=== PATIENT | female | born 1950 | race Caucasian/White ===

== ENCOUNTER → 2018-05-23 | Outpatient (CLI) | payer OTHER ==
[~2018-05-23] MED LIST: METF500 PO; MICROZIDE12.5 M1 PO; NAPR500 PO; Omeprazole20 M1; PRAV20 PO; Prinivil10 MG PO; Synthroid25 MCG PO
[2018-05-23 10:05] LABS: BASOPHILS ABSOLUTE AUTO 0.03 K/mm3 (0.00-0.23); BASOPHILS PERCENT AUTO 0 % (0-2); EOSINOPHILS ABSOLUTE AUTO 0.07 K/mm3 (0.00-0.68); EOSINOPHILS PERCENT AUTO 1 % (0-6); Hematocrit 40.4 % (33.0-51.0); Hemoglobin 14.3 g/dL (11.5-16.0); IMMATURE GRAN ABSOLUTE AUTO 0.02 K/mm3 (0.00-0.10); IMMATURE GRAN PERCENT AUTO 0 % (0-1); LYMPHOCYTES ABSOLUTE AUTO 2.34 K/mm3 (0.84-5.20); LYMPHOCYTES PERCENT AUTO 25 % (21-46); MONOCYTES ABSOLUTE AUTO 0.71 K/mm3 (0.16-1.47); MONOCYTES PERCENT AUTO 8 % (4-13); Mean Corpuscular HGB 29.1 pg (26.0-34.0); Mean Corpuscular HGB Conc 35.4 g/dL (31.5-36.5); Mean Corpuscular Volume 82 fL (80-100); Mean Platelet Volume 11.1 fL (9.1-12.4); NEUTROPHILS PERCENT AUTO 66 % (41-73); Platelet Count 257 K/mm3 (150-400); RDW Coefficient Variation 13.7 % (11.7-14.2); RDW Standard Deviation 39.8 fL (35.1-46.3); Red Blood Cell Count 4.92 M/mm3 (3.80-5.20); White Blood Cell Count 9.37 K/mm3 (4.00-11.30)
[2018-05-23 10:24] LABS: Alanine Aminotransfer (ALT/SGP 33 U/L (12-78); Albumin, Blood 4.2 g/dL (3.4-5.0); Albumin/Globulin Ratio 1.3 (0.8-1.8); Alk Phos 73 U/L (40-126); Anion Gap 12 mmol/L (6-16); Aspartate Aminotrans (AST/SGOT 18 U/L (12-37); Bilirubin, Total 0.4 mg/dL (0.1-1.0); Blood Urea Nitrogen 18 mg/dL (8-24); Bun/Creatinine Ratio 27.3 (12.0-20.0); CO2, Blood 26 mmol/L (21-32); Calcium, Blood 10.5 mg/dL (8.5-10.1); Chloride, Blood 102 mmol/L (98-108); Creatinine, Blood 0.66 mg/dL (0.40-1.00); Globulin, Blood 3.2 g/dL (2.2-4.0); Glomerular Filtration Rate >60 (60-); Glucose, Blood 107 mg/dL (70-99); Potassium, Blood 3.8 mmol/L (3.5-5.5); Sodium, Blood 140 mmol/L (136-145); Total Protein, Blood 7.4 g/dL (6.4-8.2)
[2018-05-23 10:51] LABS: International Normalized Ratio 0.97
== END | disposition home or self-care (01) ==
LOC: LAB EV 10:00 → LAB SHORT 10:00
PROVIDERS: General Practice
DX: K62.5 Hemorrhage of anus and rectum (principal)
CPT/HCPCS: 80053; 85025; 85610

== ENCOUNTER 2018-12-06 14:18 | Emergency (ER) | payer OTHER ==
[~2018-12-06] VITALS: Ht 167.6 cm; Wt 136.1 kg
[2018-12-06 15:09] LABS: BASOPHILS ABSOLUTE AUTO 0.02 K/mm3 (0.00-0.23); BASOPHILS PERCENT AUTO 0 % (0-2); EOSINOPHILS ABSOLUTE AUTO 0.05 K/mm3 (0.00-0.68); EOSINOPHILS PERCENT AUTO 0 % (0-6); Hematocrit 36.2 % (33.0-51.0); Hemoglobin 12.8 g/dL (11.5-16.0); IMMATURE GRAN ABSOLUTE AUTO 0.15 K/mm3 (0.00-0.10); IMMATURE GRAN PERCENT AUTO 1 % (0-1); LYMPHOCYTES ABSOLUTE AUTO 2.08 K/mm3 (0.84-5.20); LYMPHOCYTES PERCENT AUTO 16 % (21-46); MONOCYTES ABSOLUTE AUTO 1.29 K/mm3 (0.16-1.47); MONOCYTES PERCENT AUTO 10 % (4-13); Mean Corpuscular HGB 30.1 pg (26.0-34.0); Mean Corpuscular HGB Conc 35.4 g/dL (31.5-36.5); Mean Corpuscular Volume 85 fL (80-100); Mean Platelet Volume 10.9 fL (9.1-12.4); NEUTROPHILS PERCENT AUTO 73 % (41-73); Platelet Count 235 K/mm3 (150-400); RDW Coefficient Variation 13.2 % (11.7-14.2); RDW Standard Deviation 40.5 fL (35.1-46.3); Red Blood Cell Count 4.25 M/mm3 (3.80-5.20); White Blood Cell Count 13.39 K/mm3 (4.00-11.30)
[2018-12-06] MEDS ORDERED: OMEPRAZOLE MAGN20 MG PO (15:09)
[2018-12-06] MEDS ORDERED: CHLO25B PO (15:09)
[2018-12-06] MEDS ORDERED: NAPR500 PO (15:09)
[2018-12-06] MEDS ORDERED: PRINIVIL10 MG PO (15:09)
[2018-12-06] MEDS ORDERED: LEVSOD25 PO (15:10)
[2018-12-06] MEDS ORDERED: METF500 PO (15:10)
[2018-12-06] MEDS ORDERED: BENADRYL25 MG PO (15:10)
[2018-12-06] MEDS ORDERED: Ropinirole HC0.25 MG PO (15:10)
[2018-12-06] MEDS ORDERED: PRAV20 PO (15:10)
[2018-12-06] MEDS ORDERED: POTA10T PO (15:11)
[2018-12-06] MEDS ORDERED: BACL10 PO (15:11)
[2018-12-06] MEDS ORDERED: FURO20 PO (15:11)
[2018-12-06] MEDS ORDERED: ALEN70 PO (15:11)
[2018-12-06] MEDS ORDERED: DICLOFENAC NA (15:12)
[2018-12-06 15:35] LABS: Alanine Aminotransfer (ALT/SGP 32 U/L (12-78); Albumin, Blood 3.1 g/dL (3.4-5.0); Albumin/Globulin Ratio 0.8 (0.8-1.8); Alk Phos 66 U/L (50-136); Anion Gap 8 mmol/L (6-16); Aspartate Aminotrans (AST/SGOT 18 U/L (12-37); Bilirubin, Total 0.5 mg/dL (0.1-1.0); Blood Urea Nitrogen 27 mg/dL (8-24); CO2, Blood 24 mmol/L (21-32); Calcium, Blood 10.2 mg/dL (8.5-10.1); Chloride, Blood 103 mmol/L (98-108); Creatinine, Blood 0.69 mg/dL (0.40-1.00); Globulin, Blood 4.1 g/dL (2.2-4.0); Glomerular Filtration Rate >60 (60-); Glucose, Blood 105 mg/dL (70-99); Potassium, Blood 4.1 mmol/L (3.5-5.5); Sodium, Blood 135 mmol/L (136-145); Total Protein, Blood 7.2 g/dL (6.4-8.2); Troponin I <0.015 ng/mL (0.000-0.040)
[2018-12-06 16:28] LABS: Source, Urine Voided
[2018-12-06 16:33] LABS: Blood, Urine 3+ (Neg); Glucose Qualitative, Urine Neg (Neg); Ketones, Urine 2+ (Neg); Leukocyte Esterase, Urine 3+ (Neg); Nitrite, Urine Neg (Neg); Protein, Urine 2+ (Neg); Specific Gravity, Urine 1.025 (1.003-1.022); Urobilinogen, Urine 1+ (Normal)
[2018-12-06 16:41] LABS: Bilirubin, Urine 1+ (Neg)
[2018-12-06 16:42] LABS: Appearance, Urine Hazy (Clear); Color, Urine Yellow (P-Yellow)
[2018-12-06 16:43] LABS: Red Blood Cells, Urine 25-50 /hpf (0-2); Squamous Epithelial Cells Many /hpf (Few)
[2018-12-06 16:44] LABS: Bacteria Mod /hpf; Hyaline Casts 0-2 /lpf (0-2); Mucus Heavy (0-Heavy)
[2018-12-06] MEDS ORDERED: HYDR1TAB94 PO (17:13)
[2018-12-06] MEDS ORDERED: CEFP200 PO (17:13)
== END 2018-12-06 19:05 | disposition home or self-care (01) ==
LOC: ER 14:18
PROVIDERS: Emergency Medicine
DX: M25.552 Pain in left hip (principal); Z79.899 Other long term (current) drug therapy; Z79.84 Long term (current) use of oral hypoglycemic drugs; E11.9 Type 2 diabetes mellitus without complications
CPT/HCPCS: 71045; 73502; 80053; 81001; 83880; 84484; 85025; 93005; 93010; 96374; 96375; 99284-25; A9270-GY; J1170; J2405

== ENCOUNTER 2018-12-08 01:42 | Emergency (ER) | payer OTHER ==
[~2018-12-08] VITALS: Ht 170.2 cm; Wt 137.4 kg
[~2018-12-08 01:42] MED LIST changes: +ALEN70 PO; +BACL10 PO; +BENADRYL25 MG PO; +CEFP200 PO; +CHLO25B PO; +DICLOFENAC NA; +FURO20 PO; +HYDR1TAB94 PO; +LEVSOD25 PO; +OMEPRAZOLE MAGN20 MG PO; +POTA10T PO; +PRINIVIL10 MG PO; +Ropinirole HC0.25 MG PO
[2018-12-08 03:18] LABS: BASOPHILS ABSOLUTE AUTO 0.03 K/mm3 (0.00-0.23); BASOPHILS PERCENT AUTO 0 % (0-2); EOSINOPHILS ABSOLUTE AUTO 0.04 K/mm3 (0.00-0.68); EOSINOPHILS PERCENT AUTO 0 % (0-6); Hemoglobin 12.9 g/dL (11.5-16.0); IMMATURE GRAN ABSOLUTE AUTO 0.16 K/mm3 (0.00-0.10); IMMATURE GRAN PERCENT AUTO 1 % (0-1); LYMPHOCYTES ABSOLUTE AUTO 2.21 K/mm3 (0.84-5.20); LYMPHOCYTES PERCENT AUTO 16 % (21-46); MONOCYTES ABSOLUTE AUTO 1.27 K/mm3 (0.16-1.47); MONOCYTES PERCENT AUTO 9 % (4-13); Mean Corpuscular HGB 29.7 pg (26.0-34.0); Mean Corpuscular HGB Conc 34.9 g/dL (31.5-36.5); Mean Corpuscular Volume 85 fL (80-100); Mean Platelet Volume 10.4 fL (9.1-12.4); NEUTROPHILS ABSOLUTE AUTO 10.46 K/mm3 (1.96-9.15); NEUTROPHILS PERCENT AUTO 74 % (41-73); Platelet Count 283 K/mm3 (150-400); RDW Coefficient Variation 13.1 % (11.7-14.2); RDW Standard Deviation 40.3 fL (35.1-46.3); Red Blood Cell Count 4.34 M/mm3 (3.80-5.20); White Blood Cell Count 14.17 K/mm3 (4.00-11.30)
[2018-12-08 03:23] LABS: Source, Urine Clean Catch
[2018-12-08 03:25] LABS: Bilirubin, Urine Neg (Neg); Blood, Urine 5+ (Neg); Glucose Qualitative, Urine Neg (Neg); Ketones, Urine 3+ (Neg); Leukocyte Esterase, Urine 2+ (Neg); Nitrite, Urine Neg (Neg); Protein, Urine 1+ (Neg); Specific Gravity, Urine 1.025 (1.003-1.022); Urobilinogen, Urine NORM (Normal)
[2018-12-08 03:37] LABS: Alanine Aminotransfer (ALT/SGP 30 U/L (12-78); Albumin/Globulin Ratio 0.7 (0.8-1.8); Alk Phos 65 U/L (50-136); Anion Gap 6 mmol/L (6-16); Aspartate Aminotrans (AST/SGOT 17 U/L (12-37); Bilirubin, Total 0.4 mg/dL (0.1-1.0); Blood Urea Nitrogen 30 mg/dL (8-24); Bun/Creatinine Ratio 39.7 (12.0-20.0); CO2, Blood 27 mmol/L (21-32); Calcium, Blood 10.5 mg/dL (8.5-10.1); Chloride, Blood 100 mmol/L (98-108); Creatinine, Blood 0.76 mg/dL (0.40-1.00); Globulin, Blood 4.2 g/dL (2.2-4.0); Glomerular Filtration Rate >60 (60-); Glucose, Blood 100 mg/dL (70-99); Potassium, Blood 4.1 mmol/L (3.5-5.5); Sodium, Blood 133 mmol/L (136-145); Total Protein, Blood 7.2 g/dL (6.4-8.2)
[2018-12-08 03:40] LABS: Amorphous Light (0-Heavy); Appearance, Urine Hazy (Clear); Bacteria Mod /hpf; Color, Urine Yellow (P-Yellow); Mucus Light (0-Heavy); Squamous Epithelial Cells Few /hpf (Few); White Blood Cells, Urine 50-100 /hpf (0-5)
[2018-12-08] MEDS ORDERED: Norco 5-325 Ta1 EACH PO (05:52)
[2018-12-08] MEDS ORDERED: Keflex500 MG PO (05:52)
== END 2018-12-08 06:30 | disposition home or self-care (01) ==
LOC: ER 01:42
PROVIDERS: Emergency Medicine
DX: M16.12 Unilateral primary osteoarthritis, left hip (principal); I11.0 Hypertensive heart disease with heart failure; I50.9 Heart failure, unspecified; E11.9 Type 2 diabetes mellitus without complications; E78.5 Hyperlipidemia, unspecified; K21.9 Gastro-esophageal reflux disease without esophagitis; Z79.899 Other long term (current) drug therapy
CPT/HCPCS: 36415; 72192; 80053; 81001; 83880; 85025; 87086; 96374; 99284-25; J2270; P9612

== ENCOUNTER 2018-12-09 10:57 | Emergency (ER) | payer OTHER ==
[~2018-12-09] VITALS: Ht 165.1 cm; Wt 136.1 kg
[~2018-12-09 10:57] MED LIST changes: +Keflex500 MG PO; +Norco 5-325 Ta1 EACH PO
== END 2018-12-09 15:39 | disposition home or self-care (01) ==
LOC: ER 10:57
DX: G89.29 Other chronic pain (principal); M25.552 Pain in left hip; Z79.899 Other long term (current) drug therapy; Z79.84 Long term (current) use of oral hypoglycemic drugs; I11.0 Hypertensive heart disease with heart failure; I50.9 Heart failure, unspecified; E11.9 Type 2 diabetes mellitus without complications; K21.9 Gastro-esophageal reflux disease without esophagitis; E78.5 Hyperlipidemia, unspecified
CPT/HCPCS: 99283

== ENCOUNTER 2018-12-11 09:04 | Emergency (ER) | payer OTHER ==
[~2018-12-11] VITALS: Ht 170.2 cm; Wt 147.4 kg
== END 2018-12-11 12:38 | disposition home or self-care (01) ==
LOC: ER 09:04
DX: R29.898 Other symptoms and signs involving the musculoskeletal system (principal); E66.9 Obesity, unspecified; Z79.899 Other long term (current) drug therapy; Z79.84 Long term (current) use of oral hypoglycemic drugs; I11.0 Hypertensive heart disease with heart failure; I50.9 Heart failure, unspecified; K21.9 Gastro-esophageal reflux disease without esophagitis; E11.9 Type 2 diabetes mellitus without complications; E78.5 Hyperlipidemia, unspecified
CPT/HCPCS: 99283

== ENCOUNTER 2018-12-12 17:19 | Observation (INO) | payer OTHER ==
[~2018-12-12] VITALS: Ht 170.2 cm; Wt 144.8 kg
[2018-12-12 17:50] LABS: BASOPHILS ABSOLUTE AUTO 0.03 K/mm3 (0.00-0.23); BASOPHILS PERCENT AUTO 0 % (0-2); EOSINOPHILS ABSOLUTE AUTO 0.04 K/mm3 (0.00-0.68); EOSINOPHILS PERCENT AUTO 0 % (0-6); Hematocrit 36.2 % (33.0-51.0); Hemoglobin 12.5 g/dL (11.5-16.0); IMMATURE GRAN ABSOLUTE AUTO 0.17 K/mm3 (0.00-0.10); IMMATURE GRAN PERCENT AUTO 1 % (0-1); LYMPHOCYTES PERCENT AUTO 12 % (21-46); MONOCYTES ABSOLUTE AUTO 1.31 K/mm3 (0.16-1.47); MONOCYTES PERCENT AUTO 8 % (4-13); Mean Corpuscular HGB 29.4 pg (26.0-34.0); Mean Corpuscular HGB Conc 34.5 g/dL (31.5-36.5); Mean Corpuscular Volume 85 fL (80-100); Mean Platelet Volume 10.2 fL (9.1-12.4); NEUTROPHILS ABSOLUTE AUTO 13.54 K/mm3 (1.96-9.15); NEUTROPHILS PERCENT AUTO 79 % (41-73); Platelet Count 402 K/mm3 (150-400); RDW Coefficient Variation 13.2 % (11.7-14.2); RDW Standard Deviation 41.1 fL (35.1-46.3); Red Blood Cell Count 4.25 M/mm3 (3.80-5.20); White Blood Cell Count 17.09 K/mm3 (4.00-11.30)
[2018-12-12 22:16] LABS: Alanine Aminotransfer (ALT/SGP 31 U/L (12-78); Albumin, Blood 2.7 g/dL (3.4-5.0); Albumin/Globulin Ratio 0.6 (0.8-1.8); Alk Phos 73 U/L (50-136); Anion Gap 7 mmol/L (6-16); Aspartate Aminotrans (AST/SGOT 23 U/L (12-37); Bilirubin, Total 0.4 mg/dL (0.1-1.0); Blood Urea Nitrogen 47 mg/dL (8-24); Bun/Creatinine Ratio 51.8 (12.0-20.0); CO2, Blood 21 mmol/L (21-32); Calcium, Blood 10.1 mg/dL (8.5-10.1); Chloride, Blood 101 mmol/L (98-108); Creatinine, Blood 0.91 mg/dL (0.40-1.00); Globulin, Blood 4.4 g/dL (2.2-4.0); Glomerular Filtration Rate >60 (60-); Glucose, Blood 95 mg/dL (70-99); Potassium, Blood 5.9 mmol/L (3.5-5.5); Sodium, Blood 129 mmol/L (136-145); Total Protein, Blood 7.1 g/dL (6.4-8.2); Troponin I <0.015 ng/mL (0.000-0.040)
[2018-12-12 23:36] LABS: Source, Urine Clean Catch
[2018-12-12 23:39] LABS: Bilirubin, Urine Neg (Neg); Blood, Urine 3+ (Neg); Glucose Qualitative, Urine Neg (Neg); Ketones, Urine 2+ (Neg); Leukocyte Esterase, Urine Neg (Neg); Nitrite, Urine Neg (Neg); Protein, Urine Neg (Neg); Urobilinogen, Urine NORM (Normal)
[2018-12-12 23:48] LABS: Appearance, Urine Hazy (Clear); Bacteria Not Seen /hpf; Color, Urine Yellow (P-Yellow); Other Crystals Many /hpf; Squamous Epithelial Cells Few /hpf (Few); White Blood Cells, Urine Not Seen /hpf (0-5)
[2018-12-13 02:07] LABS: CPK Creatine Kinase 137 U/L (26-193); Troponin I <0.015 ng/mL (0.000-0.040)
[2018-12-13 03:17] LABS: Hematocrit 35.8 % (33.0-51.0); Hemoglobin 12.6 g/dL (11.5-16.0); Mean Corpuscular HGB 29.7 pg (26.0-34.0); Mean Corpuscular HGB Conc 35.2 g/dL (31.5-36.5); Mean Corpuscular Volume 84 fL (80-100); Mean Platelet Volume 9.9 fL (9.1-12.4); Platelet Count 422 K/mm3 (150-400); RDW Standard Deviation 40.3 fL (35.1-46.3); Red Blood Cell Count 4.24 M/mm3 (3.80-5.20); White Blood Cell Count 16.22 K/mm3 (4.00-11.30)
[2018-12-13 03:35] LABS: Alanine Aminotransfer (ALT/SGP 27 U/L (12-78); Albumin, Blood 2.8 g/dL (3.4-5.0); Albumin/Globulin Ratio 0.6 (0.8-1.8); Alk Phos 75 U/L (50-136); Anion Gap 6 mmol/L (6-16); Aspartate Aminotrans (AST/SGOT 21 U/L (12-37); Bilirubin, Total 0.4 mg/dL (0.1-1.0); Blood Urea Nitrogen 39 mg/dL (8-24); Bun/Creatinine Ratio 55.6 (12.0-20.0); CO2, Blood 24 mmol/L (21-32); Calcium, Blood 9.9 mg/dL (8.5-10.1); Chloride, Blood 102 mmol/L (98-108); Globulin, Blood 4.5 g/dL (2.2-4.0); Glomerular Filtration Rate >60 (60-); Glucose, Blood 84 mg/dL (70-99); Potassium, Blood 4.7 mmol/L (3.5-5.5); Sodium, Blood 132 mmol/L (136-145); Total Protein, Blood 7.3 g/dL (6.4-8.2)
--- NOTE | 2018-12-13 07:22 | NUR ---
SHIFT SUMMARY PATIENT ADMITTED FROM ER LAST NIGHT. PATIENT REQUIRING LOTS OF CARE THROUGHOUT THE NIGHT. PATIENT STATES ON MULTIPLE OCCASIONS THAT SHE "CANT " DO ANYTHING BUT THEN IS OBSERVED BY STAFF TO BE ABLE TO TURN SELF IN BED AT TIMES. PATIENT SWALLOWS MEDICATIONS WHOLE WITH WATER. AT BEDSIDE. NO COMPLAINTS OF CHEST PAIN. LEFT HIP PAIN CONTROLLED BETTER BY PRESCRIBED TORADOL.
[2018-12-13 10:34] LABS: CPK Creatine Kinase 129 U/L (26-193); Troponin I <0.015 ng/mL (0.000-0.040)
--- NOTE | 2018-12-13 18:47 | NUR ---
SHIFT SUMMARY- PT ALERT AND ORIENTED. SEEN BY PT AND OT TODAY. PT HAS BEEN UP IN THE RECLINER FOR MEALS TODAY, BLE WEAK 2PA TO THE CHAIR OR THE BSC. PT NEEDS COAXING TO PERFORM THE PROPER STEPS TO TRANSFER SAFELY. PT TRANSFERS WITH FWW AND GAIT BELT. PT HAD COMPRESSION STOCKINGS ON THIS AFTERNOON HOWEVER THEY BECAME SOILED AND WERE NOT REPLACED, D/T PT POSSITIONING, UNABLE TO PLACE THEM WHILE PT IS IN THE CHAIR. PT CURRENTLY IN THE CHAIR WITH THE CALL LIGHT IN REACH. PT WAS MEDICATED WITH NAPROSEN AT THE START OF THE SHIFT AND HAS BEEN COMFORTABLE T/O, LOTS OF UP AND DOWN ACTIVITY SEEMED TO HELP WITH PAIN.
--- NOTE | 2018-12-14 07:01 | NUR ---
PT up and down multiple times with 2 max assist to BSC. She has multple requests and complaints. Medicated for lt hip pain with hydrocodone and antispasm med. also antiinflammatory. PT has disabled spouse, unable to care for self or Spouse requiring extensive assist. SNF placement pending per PT.
--- NOTE | 2018-12-14 07:48 | NUR ---
ASSUMED CARE OF PT- BEDSIDE REPORT COMPLETED WITH NIGHT RN GURJIT. PER REPORT PT CONTINUES TO BE PARTICULAR WITH CARE PROVIDED, CRITICIZING THE CARE PROVIDED TO HER BY ANGELA AND HER SPOUSE AT HOME, STATING PEOPLE MAKE HER WAIT "FOR A REALLY LONG TIME" FOR EVERYTHING. IMPLYING HER SPOUSE DOESN'T TAKE CARE OF HER BECAUSE HE "USES COLD WIPES ALL THE TIME." WILL CONTINUE TO PROVIDE CARE, AND ASSESS SHORTLY.
[2018-12-14] MEDS ORDERED: HYDR1TAB94 PO (11:45)
[2018-12-14] MEDS ORDERED: ACET325 PO (11:53)
[2018-12-14] MEDS ORDERED: ENOX40I SC (11:54)
[2018-12-14] MEDS ORDERED: HUMULIN R500 UNIT/1 SC (11:56)
[2018-12-14] MEDS ORDERED: Nystop60 GM TOP (11:57)
--- NOTE | 2018-12-14 14:37 | NUR ---
DISCHARGE NOTE- PT DISCHARGED TO [facility]. ANICETOED [facility] AND GAVE REPORT AND LEFT CONTACT INFO IN CASE QUESTIONS SHOULD ARRISE. PT WAS TAKEN BY [facility] TO [facility], IV DC'D PRIOR TO DISCHARGE. AT THE TIME OF DISCHARGE PT WAS TOILETED ON BSC, FRESH ATTENDS PLACED AND NYSTATIN POWDER ADMINISTERED. PT SOUSE PRESENT AT THE TIME OF DISCHARGE.
== END 2018-12-14 14:26 ==
LOC: ER 17:19 → MEDS 20:27 → ER 20:27 → MEDS 20:27 → ENPENDDIS 12-14 10:30 → MEDS 12-14 14:26
PROVIDERS: Emergency Medicine; ADMIT Internal Medicine
DX: M16.12 Unilateral primary osteoarthritis, left hip (principal); G47.30 Sleep apnea, unspecified; K21.9 Gastro-esophageal reflux disease without esophagitis; E11.9 Type 2 diabetes mellitus without complications; E78.5 Hyperlipidemia, unspecified; I11.0 Hypertensive heart disease with heart failure; I50.9 Heart failure, unspecified; E66.01 Morbid (severe) obesity due to excess calories; E87.5 Hyperkalemia; D72.829 Elevated white blood cell count, unspecified; Z68.42 Body mass index [BMI] 45.0-49.9, adult
CPT/HCPCS: 36415; 71046; 72170; 80053; 81001; 82550; 82947; 83880; 84484; 85025; 85027; 87081; 93005; 93010; 96360; 96361; 96372; 96374; 96375; 97110; 97162; 97166; 97530; 97535; 99285-25; A9270-GY; G0378; J0610; J1650; J1815; J1885; J3010; J7030; J7799

== ENCOUNTER 2019-01-05 15:13 | Inpatient (IN) | payer OTHER ==
[~2019-01-05] VITALS: Ht 170.2 cm; Wt 143.3 kg
[~2019-01-05 15:13] MED LIST changes: +ACET325 PO; +ENOX40I SC; +HUMULIN R500 UNIT/1 SC; +Nystop60 GM TOP
[2019-01-05 16:20] LABS: BASOPHILS ABSOLUTE AUTO 0.07 K/mm3 (0.00-0.23); BASOPHILS PERCENT AUTO 0 % (0-2); EOSINOPHILS ABSOLUTE AUTO 0.14 K/mm3 (0.00-0.68); EOSINOPHILS PERCENT AUTO 1 % (0-6); Hemoglobin 10.9 g/dL (11.5-16.0); IMMATURE GRAN ABSOLUTE AUTO 0.35 K/mm3 (0.00-0.10); IMMATURE GRAN PERCENT AUTO 1 % (0-1); LYMPHOCYTES ABSOLUTE AUTO 1.87 K/mm3 (0.84-5.20); LYMPHOCYTES PERCENT AUTO 8 % (21-46); MONOCYTES ABSOLUTE AUTO 1.54 K/mm3 (0.16-1.47); MONOCYTES PERCENT AUTO 6 % (4-13); Mean Corpuscular HGB 28.8 pg (26.0-34.0); Mean Corpuscular HGB Conc 34.1 g/dL (31.5-36.5); Mean Corpuscular Volume 85 fL (80-100); Mean Platelet Volume 10.8 fL (9.1-12.4); NEUTROPHILS PERCENT AUTO 84 % (41-73); Platelet Count 416 K/mm3 (150-400); RDW Coefficient Variation 13.9 % (11.7-14.2); RDW Standard Deviation 42.8 fL (35.1-46.3); Red Blood Cell Count 3.78 M/mm3 (3.80-5.20); White Blood Cell Count 25.07 K/mm3 (4.00-11.30)
[2019-01-05 16:33] LABS: Alanine Aminotransfer (ALT/SGP 15 U/L (12-78); Albumin, Blood 1.9 g/dL (3.4-5.0); Albumin/Globulin Ratio 0.4 (0.8-1.8); Alk Phos 150 U/L (50-136); Anion Gap 6 mmol/L (6-16); Aspartate Aminotrans (AST/SGOT 12 U/L (12-37); Bilirubin, Total 0.4 mg/dL (0.1-1.0); Blood Urea Nitrogen 19 mg/dL (8-24); Bun/Creatinine Ratio 36.8 (12.0-20.0); CO2, Blood 25 mmol/L (21-32); Calcium, Blood 9.9 mg/dL (8.5-10.1); Chloride, Blood 108 mmol/L (98-108); Creatinine, Blood 0.52 mg/dL (0.40-1.00); Globulin, Blood 4.8 g/dL (2.2-4.0); Glomerular Filtration Rate >60 (60-); Glucose, Blood 99 mg/dL (70-99); Potassium, Blood 3.8 mmol/L (3.5-5.5); Sodium, Blood 139 mmol/L (136-145); Total Protein, Blood 6.7 g/dL (6.4-8.2)
[2019-01-05] MEDS ORDERED: ACET500 PO (18:32)
[2019-01-05] MEDS ORDERED: Alendronate Sod10 MG PO (18:33)
[2019-01-05] MEDS ORDERED: DOC250 PO (18:34)
[2019-01-05] MEDS ORDERED: POLY500 PO (18:35)
--- NOTE | 2019-01-05 20:25 | NUR ---
ATTEMPTED TO CALL FOR REPORT BUT RN WAS UNAVAILABLE. AWAITING TO CALL BACK AT THIS TIME.
--- NOTE | 2019-01-05 22:20 | NUR ---
CALLED TO ALERT STAFF OF A CHRONIC APPEARING DVT IN PT'S L.COMMON FEMORAL VEIN AND INSTRUCTED RN TO NOTIFY HOSPITALIST. REBECCA (LAITH) WAS INFORMED OF PRELIMINARY RESULTS, SIGNS/SYMPTOMS AND PRESENTATION AND SQ LOVENOX ALREADY RECIEVED PROPHLYLACTIC THIS EVENING. SHE WAS GOING TO DISCUSS SITUATION W/ AND PLACE NEW ORDERS APPROPRIATE. WILL MONITOR PT CLOSELY FOR CHANGES AND IMPLEMENT NEW MEASURES/MEDS RX'D.
[2019-01-05] MEDS ORDERED: POLY500 (22:48)
[2019-01-05] MEDS ORDERED: MIRALAX17 GM PO (22:51)
--- NOTE | 2019-01-06 00:14 | NUR ---
NEW ORDER RECIEVED: PT COMMENCED ON XARELTO, 1ST DOSE RECIEVED AND LOVENOX DC'D. WILL MONITOR FOR WORSENING S/S ASSOCIATED W/DVT OF L.FEMORAL VEIN.
--- NOTE | 2019-01-06 04:35 | NUR ---
SUMMARY: A/OX3 AND COOPERATIVE W/CARE BUT OFTEN FORGETS TO CALL FOR ASSIST AND AWAITS STAFF ROUNDING TO ALERT OF NEEDS. SHE WAS RECENTLY ADMITTED AND D/C'D TO [facility] BUT STAFF THERE OBSERVED WORSENING LLE SWELLING AND REDNESS SO SHE WAS ADMITTED AGAIN W/LLE CELLULITIS. PHOTOS WERE TAKEN, PERIMETER WAS MARKED AND MEPILEXES WERE PLACED TO VARIOUS PINPOINT WEEPING SPOTS TO ANKLE. LR X1L IS INFUSING AND IV ABX RECIEVED. PT IS ON BEDREST USING BEDPAN PRN CURRENTLY D/T WEAKNESS AND LLE PAIN. SHE WAS MEDICATED W/OXICODONE PRN AND SCHEDULED BACLOFEN FOR TOLERABLE CONTROL. ALERTED RN TO CHRONIC DVT TO L.FEMORAL VEIN POST DOPPLER STUDY IN ER. LOVENOX WAS RECIEVED UPON T/F TO FLOOR BUT WAS DC'D AFTER REBECCA (LAITH) WAS NOTIFIED OF DVT RESULTS. SHE INSTEAD RX'D XARELTO BID W/1ST DOSE PROVIDED. PT HAS DENIED COMPLAINTS OTHER THEN LLE PAIN. NO ACUTE CHANGES, VSS/AFEBRILE. WCTM AND REPORT TO DAY RN.
[2019-01-06 04:58] LABS: Anion Gap 7 mmol/L (6-16); Blood Urea Nitrogen 15 mg/dL (8-24); Bun/Creatinine Ratio 40.9 (12.0-20.0); CO2, Blood 25 mmol/L (21-32); Calcium, Blood 9.1 mg/dL (8.5-10.1); Chloride, Blood 110 mmol/L (98-108); Creatinine, Blood 0.37 mg/dL (0.40-1.00); Glomerular Filtration Rate >60 (60-); Glucose, Blood 89 mg/dL (70-99); Potassium, Blood 4.1 mmol/L (3.5-5.5); Sodium, Blood 142 mmol/L (136-145)
[2019-01-06 05:34] LABS: BASOPHILS ABSOLUTE AUTO 0.06 K/mm3 (0.00-0.23); BASOPHILS PERCENT AUTO 0 % (0-2); EOSINOPHILS ABSOLUTE AUTO 0.12 K/mm3 (0.00-0.68); EOSINOPHILS PERCENT AUTO 1 % (0-6); Hematocrit 29.7 % (33.0-51.0); Hemoglobin 10.1 g/dL (11.5-16.0); IMMATURE GRAN ABSOLUTE AUTO 0.25 K/mm3 (0.00-0.10); IMMATURE GRAN PERCENT AUTO 1 % (0-1); LYMPHOCYTES ABSOLUTE AUTO 1.42 K/mm3 (0.84-5.20); LYMPHOCYTES PERCENT AUTO 8 % (21-46); MONOCYTES ABSOLUTE AUTO 0.97 K/mm3 (0.16-1.47); MONOCYTES PERCENT AUTO 5 % (4-13); Mean Corpuscular HGB 28.5 pg (26.0-34.0); Mean Corpuscular Volume 84 fL (80-100); Mean Platelet Volume 10.4 fL (9.1-12.4); NEUTROPHILS ABSOLUTE AUTO 15.93 K/mm3 (1.96-9.15); NEUTROPHILS PERCENT AUTO 85 % (41-73); Platelet Count 380 K/mm3 (150-400); RDW Coefficient Variation 13.9 % (11.7-14.2); RDW Standard Deviation 43.1 fL (35.1-46.3); Red Blood Cell Count 3.55 M/mm3 (3.80-5.20); White Blood Cell Count 18.75 K/mm3 (4.00-11.30)
--- NOTE | 2019-01-06 05:43 | NUR ---
PT'S IV INFILTRATED TO R.AC SO WAS DC'D W/NEW IV PLACED TO L.WRIST AND IV ABX STARTED.
--- NOTE | 2019-01-06 15:17 | NUR ---
Per admit trigger, I met with Mrs. Clark and her spouse to offer prayer and spiritual support. They have been for 47 years and are clearly devoted to one another. I affirmed obvious love and provided prayer and spiritual auto travel counselor. They responded well to these interventions. I will remain available.
--- NOTE | 2019-01-06 17:54 | NUR ---
PT WAS UP TO CHAIR WITH PHYSICAL THERAPY, AFTER SITTING FOR AWHILE SHE WAS ABLE TO STAND WITH WALKER, GAIT BELT AND TWO ASSIST. UNABLE TO TURN AND TRANSFER TO BED. LIFT USED TO GET PT BACK TO BED. PT CALLS FREQ FOR REPOSITIONING AND USE OF THE BEDPAN. NO ACUTE CHANGES NOTED THIS SHIFT. WILL CONTINUE TO MONITOR AND REPORT TO ONCOMING RN
[2019-01-06 20:30] LABS: Vancomycin, Trough 15.7 ug/mL (5.0-10.0)
--- NOTE | 2019-01-07 05:51 | NUR ---
SUMMARY: A/OX3, CALLS FREQUENTLY FOR NON-ACUTE NEEDS OR REPOSITIONING AND BECOMES DEPRESSED/TEARFUL AT TIMES. REASSURANCE PROVIDED AND MEDICATED FOR PAIN PRN W/OXICODONE X3 DOSES FOR TOLERABLE CONTORL OF L.HIP AND LLE PAIN. SWELLING AND REDNESS PERSISTS BUT REMAINS W/IN MARKED AREA. LLE IS ELEVATED ON PILLOWS. MEPILEXES REMAIN C/D/I TO WEEPING AREAS. IV ABX BEING RECIEVED. SHE USES BEDPAN OFTEN AND HAS NOT BEEN OOB THIS SHIFT. 2MAX ASSIST OOB AND LIFT WAS REQUIRED BACK FROM CHAIR DURING DAY SHIFT. PT CONT'S ON XARELTO FOR L.FEMORAL VEIN DVT. NO ACUTE CHANGES, VSS/AFEBRILE. WCTM AND REPORT TO DAY RN.
--- NOTE | 2019-01-07 09:48 | NUR ---
PROVIDER CONSULT CONSULT CALLED TO DR LONDONO'S OFFICE 01/07/19 AT [id number]
[2019-01-07 20:46] LABS: Vancomycin, Trough 22.6 ug/mL (5.0-10.0)
[2019-01-08 05:02] LABS: Hemoglobin 9.7 g/dL (11.5-16.0); Mean Corpuscular HGB 27.6 pg (26.0-34.0); Mean Corpuscular HGB Conc 33.4 g/dL (31.5-36.5); Mean Corpuscular Volume 82 fL (80-100); Mean Platelet Volume 10.2 fL (9.1-12.4); Platelet Count 429 K/mm3 (150-400); RDW Standard Deviation 41.2 fL (35.1-46.3); Red Blood Cell Count 3.52 M/mm3 (3.80-5.20); White Blood Cell Count 11.78 K/mm3 (4.00-11.30)
--- NOTE | 2019-01-08 05:12 | NUR ---
NOC SHIFT SUMMARY PT IS COOPERATIVE WITH CARE. CELLULITIS OF L LEG HAS RETREATED FORM PEN MARKING ON SKIN. PT DOES BECOME VERY ANXIOUS AND TEARFUL AT TIMES. SHE HAS BEEN TREATED FOR PAIN PER EMAR. USES BED GRANDE TO VOID. RECIEVED CRITICAL RESULT OF VANCO TROUGH AT 22.6, CALLED TO PHARMACY. VANCO HELD THIS NIGHT PER PHARMACY INSTRUCTIONS. PT HAS SLEPT ON AND OFF THROUGHT THE NIGHT. VSS. APPEARS IN NO ACUTE DISTRESS. WILL CONTINUE TO MONITOR.
[2019-01-08 05:17] LABS: Anion Gap 6 mmol/L (6-16); Blood Urea Nitrogen 11 mg/dL (8-24); Bun/Creatinine Ratio 26.2 (12.0-20.0); CO2, Blood 30 mmol/L (21-32); Calcium, Blood 9.4 mg/dL (8.5-10.1); Chloride, Blood 110 mmol/L (98-108); Creatinine, Blood 0.42 mg/dL (0.40-1.00); Glomerular Filtration Rate >60 (60-); Glucose, Blood 101 mg/dL (70-99); Potassium, Blood 3.6 mmol/L (3.5-5.5); Sodium, Blood 146 mmol/L (136-145)
[2019-01-08 05:31] LABS: BAND PERCENT MAN 3 % (0-8); BASOPHILS PERCENT MAN 0 % (0-2); EOSINOPHILS ABSOLUTE MAN 0.11 K/mm3 (0.00-0.68); EOSINOPHILS PERCENT MAN 1 % (0-6); LYMPHOCYTES ABSOLUTE MAN 1.76 K/mm3 (0.84-5.20); LYMPHOCYTES PERCENT MAN 15 % (21-46); METAMYELOCYTE ABSOLUTE MAN 0.11 K/mm3 (0.00-0.00); METAMYELOCYTE PERCENT MAN 1 % (0-0); MONOCYTES ABSOLUTE MAN 0.82 K/mm3 (0.16-1.47); MONOCYTES PERCENT MAN 7 % (4-13); MYELOCYTE ABSOLUTE MAN 0.11 K/mm3 (0.00-0.00); MYELOCYTE PERCENT MAN 1 % (0-0); NEUTROPHILS ABSOLUTE MAN 8.83 K/mm3 (1.96-9.15); SEG NEUTROPHILS PERCENT MAN 72 % (41-73); TOTAL CELLS COUNTED 100
--- NOTE | 2019-01-08 17:58 | NUR ---
PATIENT A/O X4, UP WITH 1-2 ASSIST TO BSC. 22G IV TO R HAND WNL AND SL BETWEEN ABX. PATIENT MEDICATED WITH OXYCODONE X1 THIS SHIFT FOR LEG PAIN. REDNESS RECEEDING FROM ORIGINAL TRACING TO RLE CELLULITIS. VSS, ON RA. CALLS APPROPRIATELY FOR ASSISTANCE. PLAN IS TO D/C BACK TO [facility] SOON TOMORROW.
[2019-01-09 04:42] LABS: Hematocrit 29.1 % (33.0-51.0); Hemoglobin 9.8 g/dL (11.5-16.0); Mean Corpuscular HGB 28.4 pg (26.0-34.0); Mean Corpuscular HGB Conc 33.7 g/dL (31.5-36.5); Mean Corpuscular Volume 84 fL (80-100); Mean Platelet Volume 9.7 fL (9.1-12.4); NRBC ABSOLUTE 0.02 K/mm3 (0.00-0.02); NRBC Auto 0.2 /100 WBC (0.0-0.2); Platelet Count 405 K/mm3 (150-400); RDW Coefficient Variation 14.2 % (11.7-14.2); RDW Standard Deviation 43.4 fL (35.1-46.3); Red Blood Cell Count 3.45 M/mm3 (3.80-5.20); White Blood Cell Count 11.86 K/mm3 (4.00-11.30)
[2019-01-09 04:59] LABS: Anion Gap 8 mmol/L (6-16); Blood Urea Nitrogen 13 mg/dL (8-24); Bun/Creatinine Ratio 27.4 (12.0-20.0); CO2, Blood 28 mmol/L (21-32); Calcium, Blood 9.4 mg/dL (8.5-10.1); Chloride, Blood 108 mmol/L (98-108); Creatinine, Blood 0.47 mg/dL (0.40-1.00); Glomerular Filtration Rate >60 (60-); Glucose, Blood 104 mg/dL (70-99); Sodium, Blood 144 mmol/L (136-145)
[2019-01-09 05:01] LABS: BAND PERCENT MAN 2 % (0-8); BASOPHILS PERCENT MAN 0 % (0-2); EOSINOPHILS ABSOLUTE MAN 0.11 K/mm3 (0.00-0.68); EOSINOPHILS PERCENT MAN 1 % (0-6); LYMPHOCYTES ABSOLUTE MAN 2.72 K/mm3 (0.84-5.20); LYMPHOCYTES PERCENT MAN 23 % (21-46); METAMYELOCYTE ABSOLUTE MAN 0.11 K/mm3 (0.00-0.00); METAMYELOCYTE PERCENT MAN 1 % (0-0); MONOCYTES ABSOLUTE MAN 1.77 K/mm3 (0.16-1.47); MONOCYTES PERCENT MAN 15 % (4-13); NEUTROPHILS ABSOLUTE MAN 7.11 K/mm3 (1.96-9.15); SEG NEUTROPHILS PERCENT MAN 58 % (41-73); TOTAL CELLS COUNTED 100
--- NOTE | 2019-01-09 05:30 | NUR ---
SHIFT SUMMARY CELLULITIS TO LLE IS RED/SWOLLEN/WARM TO TOUCH. MARKING AROUND AREA SHOWS DECREASE IN SIZE. ABX PER ORDERS. PT IS CONTINENT/CONTINENT, 2 PER ASSIST FOR BEDPAN AND ATTENDS CHANGE. PT RECIEVED 5 MG OXYCODONE PO TWICE FOR PAIN RELIEF. PT IS TEARFUL AT TIMES AND FINDS DIFFICULTY GETTING COMFORTABLE. FREQUENT REPOSITIONING DONE PER PT REQUEST AND TOLERATED. LLE ELEVATED PT TOLERATES. NO OTHER CHANGES TO REPORT, PT WILL POSSIBLY D/C BACK TO TODAY. WILL CONT TO MONITOR AND PROVIDE CARE UNTIL PRESUMED BY ONCOMING RN.
--- NOTE | 2019-01-09 16:38 | NUR ---
PATIENT A/OX4, UP WITH 2 ASSIST TO BSC. CONTINUES WITH ANCEF AND STARTED ON PO LEVAQUIN. PLAN IS TO D/C BACK TO [facility] ONCE STABLE. LLE REMAINS RED. MEPLIEX DRESSING TO L FOOT COVERING WEEPING. 4+ EDEMA TO BLE. 22G IV TO R HAND WNL AND SL. OXYCODONE PRN FOR PAIN, 1 DOSE GIVEN THIS SHIFT. PATIENT CALLS APPROPRIATELY FOR ASSISTANCE. AT BEDSIDE THROUGHOUT THIS SHIFT.
--- NOTE | 2019-01-09 23:24 | NUR ---
UNCONTROLLED PAIN PT REPORTS HAVING UNCONTROLLED PAIN, IS CURRENTLY RECIEVING 5MG PO ROXICODONE Q6H PRN. ASKED PT WHAT SHE NORMALLY TAKES AT HOME TO SUCCESSFULLY CONTROL PAIN, OF WHICH SHE STATES SHE TAKES 5MG PO NORCO Q6H PRN. REPORTED TO HARRISON, WHO ORDERS HOME REGIMEN NORCO. WILL ADMINISTERED AND REASSESS PAIN CONTROL.
--- NOTE | 2019-01-10 05:44 | NUR ---
SHIFT SUMMARY PAIN MEDS CHANGED FROM PO OXYCODONE TO PO NORCO TONIGHT, PT REPORTS THIS HAS "SIGNIFICANTLY CONTROLLED PAIN MUCH BETTER". WILL CONT TO MONITOR AND TREAT PAIN PER EMAR. PT USES CALL LT FREQUENTLY FOR NON-ACUTE NEEDS AND BECOMES TEARFUL EASILY. 2 PER MAX FOR CHANGES AND BEDPAN. LLE CELLULITIS CONT TO BE RED AND SWOLLEN, WEEPING AREAS WITH MEPILEX C/D/I. R FT ALSO NOTED TO HAVE A SMALL RED AREA AT TOP OF FT. BLE WITH 3+ PITTING EDEMA. IV ANCEF ADMINISTERED PER ORDERS. WILL CONT TO MONITOR AND PROVIDE CARE UNTIL PRESUMED BY ONCOMING RN.
--- NOTE | 2019-01-10 07:19 | NUR ---
ASSUMED CARE OF PT- BEDSIDE REPORT COMPLETED WITH NIGHT ELVA WORKMAN. PER REPORT PT PAIN IS WELL MANAGED WITH THE NORCO THAT WAS ORDERED. PT HAS NO S&S OF PAIN AT THE TIME OF SHIFT CHANGE. PLAN IS FOR PT TO DISCHARGE BACK TO [facility] TODAY. P[T ON BOTH ORAL AND IV ABX AT THIS TIME. PER REPORT PT IS A HARD STICK 22G IV PRESENT IN THE RIGHT WRIST SL AT THIS TIME, PER REPORT VERY POSITIONAL BUT DOES FLUSH. PT ALERT AND ORIENTED, CALL LIGHT IN REACH. PT CALLS FREQUENTLY OFTEN DIRECTLY AFTER STAFF LEAVE THE ROOM (PER REPORT).
--- NOTE | 2019-01-10 08:12 | NUR ---
PT PAIN- PT STATED DURING BEDSIDE REPORT SHE HAD NO PAIN "MAYBE A TWINGE EVERY NOW AND THEN." WHEN STAFF WENT IN TO ASSIST WITH A CHANGE PT STATED "IT MUST BE GETTING CLOSE TO TIME FOR PAIN MEDICINE." STAFF INFORMED NEXT DOSE UNAVAILABLE UNTIL 1200. PT IS FORGETFUL, NO S&S OF PAIN AT THIS TIME.
[2019-01-10] MEDS ORDERED: LEVFLO500 PO (10:50)
[2019-01-10] MEDS ORDERED: Vsl#3 Capsule1 EACH PO (10:50)
[2019-01-10] MEDS ORDERED: Prinivil10 MG PO (10:51)
[2019-01-10] MEDS ORDERED: XARELTO10 MG PO (10:52)
[2019-01-10] MEDS ORDERED: Bactrim Ds Tab1 EACH PO (10:53)
--- NOTE | 2019-01-10 14:48 | NUR ---
DISCHARGE NOTE- PT DISCHARGED BACK TO [facility]. PT HAD A BM THIS MORNING AND TRANSFERED TO THE [facility] WITH 2P MINIMUM ASSIST. PT TAKEN BY TRANSPORT BACK TO [facility].
--- NOTE | 2019-01-10 14:54 | NUR ---
CALLED REPORT TO ANN- NO FURTHER QUESTIONS AT THE TIME OF REPORT. THEY HAVE CONTACT INFO TO CALL IF QUESTIONS SHOULD ARRISE.
== END 2019-01-10 14:03 | disposition home or self-care (01) | DRG 872 ==
LOC: ER 15:13 → MEDS 17:33
PROVIDERS: Hospitalist; Internal Medicine; ADMIT Internal Medicine
DX: A41.9 Sepsis, unspecified organism (principal); L03.116 Cellulitis of left lower limb; E66.2 Morbid (severe) obesity with alveolar hypoventilation; I82.502 Chronic embolism and thrombosis of unspecified deep veins of left lower extremity; E11.9 Type 2 diabetes mellitus without complications; Z74.09 Other reduced mobility; K21.9 Gastro-esophageal reflux disease without esophagitis; E78.5 Hyperlipidemia, unspecified; I11.0 Hypertensive heart disease with heart failure; I50.9 Heart failure, unspecified; G47.30 Sleep apnea, unspecified; Z79.4 Long term (current) use of insulin; Z79.1 Long term (current) use of non-steroidal anti-inflammatories (NSAID); Z79.899 Other long term (current) drug therapy
CPT/HCPCS: 36415; 80048; 80053; 80202; 82947; 83036; 83605; 85025; 87040; 93971; 96365; 97163; 97530; 99285-25; A9270-GY; J0690; J1650; J2405; J3010; J3370; J7050; J7120

== ENCOUNTER 2019-01-20 06:58 | Inpatient (IN) | payer OTHER ==
[~2019-01-20] VITALS: Ht 170.2 cm; Wt 131.7 kg
[~2019-01-20 06:58] MED LIST changes: +ACET500 PO; +Alendronate Sod10 MG PO; +Bactrim Ds Tab1 EACH PO; +DOC250 PO; +LEVFLO500 PO; +MIRALAX17 GM PO; +POLY500; +POLY500 PO; +Vsl#3 Capsule1 EACH PO; +XARELTO10 MG PO
[2019-01-20] MEDS ORDERED: POLY500 PO (07:20)
[2019-01-20] MEDS ORDERED: LEVFLO500 PO (07:22)
[2019-01-20] MEDS ORDERED: Bacid1 EACH PO (07:24)
[2019-01-20] MEDS ORDERED: DOC250 PO (07:25)
[2019-01-20] MEDS ORDERED: NAPR500 PO (07:25)
[2019-01-20] MEDS ORDERED: ONDA4ODT PO (07:27)
[2019-01-20 07:44] LABS: Source, Urine Catheter
[2019-01-20 07:51] LABS: Blood, Urine 5+ (Neg); Glucose Qualitative, Urine Neg (Neg); Ketones, Urine Neg (Neg); Leukocyte Esterase, Urine 1+ (Neg); Nitrite, Urine Neg (Neg); Protein, Urine 1+ (Neg); Specific Gravity, Urine 1.025 (1.003-1.022); Urobilinogen, Urine 1+ (Normal)
[2019-01-20 07:52] LABS: BASOPHILS ABSOLUTE AUTO 0.08 K/mm3 (0.00-0.23); BASOPHILS PERCENT AUTO 1 % (0-2); EOSINOPHILS ABSOLUTE AUTO 0.04 K/mm3 (0.00-0.68); EOSINOPHILS PERCENT AUTO 0 % (0-6); Hematocrit 34.9 % (33.0-51.0); Hemoglobin 12.1 g/dL (11.5-16.0); IMMATURE GRAN ABSOLUTE AUTO 0.14 K/mm3 (0.00-0.10); IMMATURE GRAN PERCENT AUTO 1 % (0-1); LYMPHOCYTES ABSOLUTE AUTO 2.77 K/mm3 (0.84-5.20); LYMPHOCYTES PERCENT AUTO 20 % (21-46); MONOCYTES ABSOLUTE AUTO 1.78 K/mm3 (0.16-1.47); MONOCYTES PERCENT AUTO 13 % (4-13); Mean Corpuscular HGB 28.9 pg (26.0-34.0); Mean Corpuscular HGB Conc 34.7 g/dL (31.5-36.5); Mean Corpuscular Volume 83 fL (80-100); Mean Platelet Volume 9.9 fL (9.1-12.4); NEUTROPHILS ABSOLUTE AUTO 9.43 K/mm3 (1.96-9.15); NEUTROPHILS PERCENT AUTO 66 % (41-73); Platelet Count 616 K/mm3 (150-400); RDW Coefficient Variation 14.9 % (11.7-14.2); Red Blood Cell Count 4.19 M/mm3 (3.80-5.20); White Blood Cell Count 14.24 K/mm3 (4.00-11.30)
[2019-01-20 08:10] LABS: Appearance, Urine Hazy (Clear); Bilirubin, Urine 1+ (Neg); Color, Urine Yellow (P-Yellow)
[2019-01-20 08:12] LABS: Albumin/Globulin Ratio 0.6 (0.8-1.8); Bilirubin, Total 0.3 mg/dL (0.1-1.0); Bun/Creatinine Ratio 15.6 (12.0-20.0); Calcium, Blood 9.9 mg/dL (8.5-10.1); Creatinine, Blood 2.24 mg/dL (0.40-1.00); Globulin, Blood 5.1 g/dL (2.2-4.0); Potassium, Blood 5.2 mmol/L (3.5-5.5); Total Protein, Blood 8.1 g/dL (6.4-8.2)
[2019-01-20 08:20] LABS: Bacteria Many /hpf; Squamous Epithelial Cells Few /hpf (Few)
[2019-01-20 08:22] LABS: Amorphous Mod ({null, 0-Heavy}); Calcium Oxalate Crystals Mod /hpf
[2019-01-20 09:32] LABS: PCO2 Arterial 33.7 mmHg (35-45); PO2 Arterial 74.6 mmHg (80-100); pH Blood Arterial 7.39 (7.35-7.45)
--- NOTE | 2019-01-20 12:35 | NUR ---
ADMIT NOTE ANGEL VAZQUEZ FROM ER. SHE ARRIVED AT 1125 TO PCU 10. PT GUEVARA, CALLING OUT. REDIRECTS WELL. AT BEDSIDE. PT REFUSED A BED GRANDE. SHE CHOSE TO VOID IN HER ATTENDS. SHE IS BED BOUND AT [facility]. ANNE AREA SKIN CD&I. SHE NEEDS ENCOURAGEMENT TO DO FOR HERSELF. SHE CAN HELP TURN AND REPOSITION. SHE CAN USE THE TRAPEZE WELL. SHE TRIES TO AVOID MOVING HERSELF. LEFT HIP IS PAINFUL CHRONICALLY. LEFT LE CELLULITUS LOOKS MUCH IMPROVED. DEFERRED PT/OT EVAL UNTIL TOMORROW IN THE HOPES THAT HER MENTITION IS MORE ALLERT AND SHE IS ABLE TO PARTICIPATE. SPOUCE AGREES. CONTINUE POT.
[2019-01-20] MEDS ORDERED: HYDR1TAB94 PO (13:08)
--- NOTE | 2019-01-20 15:56 | NUR ---
note Pt up adlib with cane. He walked down to elevators with family. Gait steady. He did state that he feels weaker than normal and more sob. SR/ST on monitor. DUring walking pt hr went up to 110 bpm. Sat 91% upon sitting on the side of the bed. Denied pain or dizziness. Pt is feeling very thankful that he is still alive. That he nurses didn't given up trying to talk him into having the angiogram. COntinue pot.
[2019-01-21 03:38] LABS: BASOPHILS ABSOLUTE AUTO 0.04 K/mm3 (0.00-0.23); BASOPHILS PERCENT AUTO 0 % (0-2); EOSINOPHILS ABSOLUTE AUTO 0.04 K/mm3 (0.00-0.68); EOSINOPHILS PERCENT AUTO 0 % (0-6); Hemoglobin 10.8 g/dL (11.5-16.0); IMMATURE GRAN ABSOLUTE AUTO 0.09 K/mm3 (0.00-0.10); IMMATURE GRAN PERCENT AUTO 1 % (0-1); LYMPHOCYTES ABSOLUTE AUTO 2.04 K/mm3 (0.84-5.20); LYMPHOCYTES PERCENT AUTO 22 % (21-46); MONOCYTES ABSOLUTE AUTO 1.12 K/mm3 (0.16-1.47); MONOCYTES PERCENT AUTO 12 % (4-13); Mean Corpuscular HGB Conc 33.8 g/dL (31.5-36.5); Mean Corpuscular Volume 83 fL (80-100); Mean Platelet Volume 10.3 fL (9.1-12.4); NEUTROPHILS ABSOLUTE AUTO 5.89 K/mm3 (1.96-9.15); NEUTROPHILS PERCENT AUTO 64 % (41-73); Platelet Count 547 K/mm3 (150-400); RDW Coefficient Variation 15.1 % (11.7-14.2); RDW Standard Deviation 45.1 fL (35.1-46.3); Red Blood Cell Count 3.86 M/mm3 (3.80-5.20); White Blood Cell Count 9.22 K/mm3 (4.00-11.30)
[2019-01-21 04:02] LABS: Anion Gap 7 mmol/L (6-16); Blood Urea Nitrogen 23 mg/dL (8-24); Bun/Creatinine Ratio 28.8 (12.0-20.0); CO2, Blood 26 mmol/L (21-32); Calcium, Blood 9.6 mg/dL (8.5-10.1); Chloride, Blood 105 mmol/L (98-108); Glomerular Filtration Rate >60 (60-); Glucose, Blood 93 mg/dL (70-99); Potassium, Blood 4.8 mmol/L (3.5-5.5)
[2019-01-21 04:06] LABS: Sodium, Blood 138 mmol/L (136-145)
--- NOTE | 2019-01-21 06:27 | NUR ---
SHIFT SUMMARY PT SLEEPING IN ROOM COMFORTABLY AT THIS TIME. PT HAD NO ACUTE CHANGES IN STATSU T/O NIGHT. PT DID NOT SLEEP WELL, AND CONTINUOUSLY CALLED OUT TO STAFF YELLING ABOUT BEING IN PAIN AND NEEDING TURNED OVER. PT WAS ASSISTED TO TURN FREQUENTLY T/O NIGHT, PT WAS DEMANING OF STAFF AND VERBALLY ABUSIVE T/O NIGHT TOWARDS STAFF. PT WAS EDUCATED THAT VERBAL ABUSE WOULD NOT BE TOLERATED TOWARD STAFF, AND PT BEGAN TO CRY HYSTERICALLY AND YELL THAT STAFF WAS "BEING MEAN". PT EDUCATED THAT STAFF WAS DOING THEIR BEST TO MAKE PT COMFORTABLE, AND ASSIST PT IN GETTING BETTER. PT REMAINED INTRACTABLE T/O NIGHT AND DEMANDING OF STAFF. PT HAS ATTENDS IN PLACE D/T PT REFUSAL TO USE BEDPAN D/T "IT HURTS ME". PT ATTEMPTED TO REFUSE ATTENDS IN PLACE, BUT PT WAS EDUCATED THAT ATTENDS NEEDED TO BE IN PLACE TO HELP PROTECT PT SKIN FROM IRRATATION AND WOULD REMAIN IN PLACE FOR SKIN CARE. PIV IS SL AT THIS TIME. CALL LIGHT IN REACH.
--- NOTE | 2019-01-21 19:54 | NUR ---
SHIFT SUMMARY PT A&Ox3, UNAWARE OF TIME/DATE. FORGETFUL AT TIMES, CALLS OUT/SPOUSE COMES OUT OF ROOM FOR ASSISTANCE, EDUCATED CERTIFIED ORTHOTIC FITTER LIGTH AND NURSING ROUNDING. ANXIOUS AND IRRITABLE AT TIMES. PT RESTING IN BED DURING SHIFT. REPOSTION WITH LIFT Q2 AND PRN FOR PT COMFORT. PT REFUSING TO USE BEDPAIN, CHOOSING TO VOID IN ATTENDS. PT REPORTS PAIN IN LLE AND RIGHT KNEE, MEDICATED x3 WITH POSITIVE RESULTS. PT SOB WITH EXERTION AND MOVEMENT, >92% ON RA. PT DENIES NAUSEA, HAS GOOD APPETITE. VSS. NO OTHER ACUTE CHAGNES NOTED DURING SHIFT. REPORT GIVEN TO ONCOMING RN.
--- NOTE | 2019-01-22 04:22 | NUR ---
SHIFT SUMMARY PT A&O. VSS. PT C/O LLE PAIN, MEDICATED PER EMAR. PT VERY TEARFUL AND ANXIOUS, CALLING EXTRUSION UTILITY WORKER LIGHT FREQUENTLY T/O SHIFT. PT ABLE TO MOVE EXTREMITIES, BUT STATES INABILITY. PT ENCOURAGED TO REPOSITION SELF MUCH ABLE. PT ASSISTED W/ REPOSITIONING BY 2 STAFF W/ MODERATE ASSIST. ALL PT NEEDS ASSESSED AND ACKNOWLEDGED BEFORE EXITING ROOM EACH TIME W/ PT CALLING EXTRUSION UTILITY WORKER LIGHT SHORTLY AFTER STAFF EXIT FOR STAFF TO MOVE PT IN WAYS PT IS ABLE DESPITE JUST ASSISTING PT IN REPOSITIONING AND ASSESSING COMFORT PRIOR TO EXITING. PT CONTINUES TO BE INCONTINENT T/O SHIFT, SOAKING THROUGH ATTENDS Q 1-2H. PRN ANNE CARE / ATTENDS CHANGES PROVIDED. LEFT LOWER LEG CONTINUES TO BE RED AND SWOLLEN. ATTEMPTS MADE TO ELEVATED LEG W/ PT INTOLERANCE AND REMOVAL. WILL CONTINUE TO MONITOR AND PROVIDE CARE UNTIL REPORT OFF TO DAY SHIFT RN.
[2019-01-22 04:29] LABS: Anion Gap 8 mmol/L (6-16); Blood Urea Nitrogen 17 mg/dL (8-24); Bun/Creatinine Ratio 30.9 (12.0-20.0); CO2, Blood 23 mmol/L (21-32); Calcium, Blood 9.9 mg/dL (8.5-10.1); Chloride, Blood 106 mmol/L (98-108); Creatinine, Blood 0.55 mg/dL (0.40-1.00); Glomerular Filtration Rate >60 (60-); Glucose, Blood 97 mg/dL (70-99); Potassium, Blood 4.9 mmol/L (3.5-5.5); Sodium, Blood 137 mmol/L (136-145)
[2019-01-22] MEDS ORDERED: XARELTO20 MG PO (11:15)
[2019-01-22] MEDS ORDERED: ATEN25 PO (11:16)
[2019-01-22] MEDS ORDERED: CEPH500 PO (11:17)
--- NOTE | 2019-01-22 16:26 | NUR ---
DISCHARGE SUMMARY PT A&Ox3, UNAWARE OF TIME/DATE, FORGETFUL AT TIMES. PT RESTING IN BED, REPOSITIONED FREQUENTLY FOR COMFORT AND PRESSURE SORE PREVENTION. PT REPORTS PAIN IN LLE, MEDICATED x2 WITH POSITIVE RESULTS. PT SOB WITH MOVEMENT. PT ASSIST WITH REPOSITIONING SELF. PT AGREED TO START USING BED GRANDE THIS AFTERNOON, ASSISTING WITH TURNING. PT DENIES NAUSEA, HAS GOOD APPETEITE. REDNESS TO LLE. VSS. NO OTHER ACUTE CHANGES NOTED DURING SHIFT. PT/SPOUSE EDUCATED ON DISCAHRGE BACK TO [facility]. PT LEFT ROOM VIA [employer] AT 1620. REPORT CALLED TO [facility] AT 1635.
== END 2019-01-22 16:20 | DRG 871 ==
LOC: ER 06:58 → PCU 09:06 → ER 11:20 → PCU 11:49
PROVIDERS: Internal Medicine; ADMIT Hospitalist
DX: A41.9 Sepsis, unspecified organism (principal); G92 Toxic encephalopathy; N17.9 Acute kidney failure, unspecified; I82.502 Chronic embolism and thrombosis of unspecified deep veins of left lower extremity; E87.1 Hypo-osmolality and hyponatremia; E87.2 Acidosis; I50.32 Chronic diastolic (congestive) heart failure; L03.116 Cellulitis of left lower limb; R65.20 Severe sepsis without septic shock; E66.01 Morbid (severe) obesity due to excess calories; G47.33 Obstructive sleep apnea (adult) (pediatric); Z74.09 Other reduced mobility; K21.9 Gastro-esophageal reflux disease without esophagitis; E78.5 Hyperlipidemia, unspecified; I11.0 Hypertensive heart disease with heart failure; E03.9 Hypothyroidism, unspecified; M19.90 Unspecified osteoarthritis, unspecified site; Z79.84 Long term (current) use of oral hypoglycemic drugs; Z79.1 Long term (current) use of non-steroidal anti-inflammatories (NSAID); Z79.83 Long term (current) use of bisphosphonates; Z79.4 Long term (current) use of insulin; Z79.899 Other long term (current) drug therapy; Z79.01 Long term (current) use of anticoagulants; Z68.39 Body mass index [BMI] 39.0-39.9, adult
CPT/HCPCS: 36415; 36600; 71045; 80048; 80053; 81001; 82803; 82947; 83605; 85025; 87040; 87086; 93005; 93010; 96365; 97110; 97163; 97166; 97530; 99285-25; A9270; A9270-GY; J0690; J7120; P9612

== ENCOUNTER 2019-02-26 15:57 | Observation (INO) | payer OTHER ==
[~2019-02-26] VITALS: Ht 167.6 cm; Wt 119.3 kg
[~2019-02-26 15:57] MED LIST changes: +ATEN25 PO; +Bacid1 EACH PO; +CEPH500 PO; +ONDA4ODT PO; +XARELTO20 MG PO
[2019-02-26 17:13] LABS: BASOPHILS ABSOLUTE AUTO 0.03 K/mm3 (0.00-0.23); BASOPHILS PERCENT AUTO 0 % (0-2); EOSINOPHILS ABSOLUTE AUTO 0.05 K/mm3 (0.00-0.68); EOSINOPHILS PERCENT AUTO 1 % (0-6); Hematocrit 41.3 % (33.0-51.0); Hemoglobin 13.6 g/dL (11.5-16.0); IMMATURE GRAN ABSOLUTE AUTO 0.04 K/mm3 (0.00-0.10); IMMATURE GRAN PERCENT AUTO 0 % (0-1); LYMPHOCYTES ABSOLUTE AUTO 2.01 K/mm3 (0.84-5.20); LYMPHOCYTES PERCENT AUTO 21 % (21-46); MONOCYTES ABSOLUTE AUTO 0.95 K/mm3 (0.16-1.47); MONOCYTES PERCENT AUTO 10 % (4-13); Mean Corpuscular HGB 27.6 pg (26.0-34.0); Mean Corpuscular HGB Conc 32.9 g/dL (31.5-36.5); Mean Corpuscular Volume 84 fL (80-100); Mean Platelet Volume 10.8 fL (9.1-12.4); NEUTROPHILS ABSOLUTE AUTO 6.67 K/mm3 (1.96-9.15); NEUTROPHILS PERCENT AUTO 69 % (41-73); Platelet Count 390 K/mm3 (150-400); RDW Coefficient Variation 15.1 % (11.7-14.2); RDW Standard Deviation 45.8 fL (35.1-46.3); Red Blood Cell Count 4.92 M/mm3 (3.80-5.20); White Blood Cell Count 9.75 K/mm3 (4.00-11.30)
[2019-02-26 17:37] LABS: Alanine Aminotransfer (ALT/SGP 12 U/L (12-78); Albumin, Blood 3.5 g/dL (3.4-5.0); Albumin/Globulin Ratio 0.8 (0.8-1.8); Alk Phos 91 U/L (50-136); Anion Gap 6 mmol/L (6-16); Aspartate Aminotrans (AST/SGOT 10 U/L (12-37); Bilirubin, Total 0.4 mg/dL (0.1-1.0); Blood Urea Nitrogen 32 mg/dL (8-24); Bun/Creatinine Ratio 41.7 (12.0-20.0); CO2, Blood 24 mmol/L (21-32); Calcium, Blood 10.9 mg/dL (8.5-10.1); Chloride, Blood 109 mmol/L (98-108); Creatinine, Blood 0.77 mg/dL (0.40-1.00); Globulin, Blood 4.4 g/dL (2.2-4.0); Glomerular Filtration Rate >60 (60-); Glucose, Blood 99 mg/dL (70-99); Potassium, Blood 4.9 mmol/L (3.5-5.5); Sodium, Blood 139 mmol/L (136-145); Total Protein, Blood 7.9 g/dL (6.4-8.2)
[2019-02-26 18:11] LABS: Source, Urine Catheter
[2019-02-26 18:25] LABS: Bilirubin, Urine Neg (Neg); Blood, Urine Neg (Neg); Glucose Qualitative, Urine Neg (Neg); Ketones, Urine Neg (Neg); Leukocyte Esterase, Urine Neg (Neg); Nitrite, Urine Neg (Neg); Protein, Urine Neg (Neg); Specific Gravity, Urine 1.015 (1.003-1.022); Urobilinogen, Urine NORM (Normal)
[2019-02-26 18:56] LABS: Appearance, Urine Clear (Clear); Color, Urine Yellow (P-Yellow)
[2019-02-26] MEDS ORDERED: Atenolol25 MG PO (19:36)
[2019-02-26] MEDS ORDERED: ESCITALOPRAM OX10 MG PO (20:05)
[2019-02-26] MEDS ORDERED: NAPR220 PO (20:06)
[2019-02-27 05:09] LABS: Hematocrit 36.6 % (33.0-51.0); Mean Corpuscular HGB 27.3 pg (26.0-34.0); Mean Corpuscular HGB Conc 32.8 g/dL (31.5-36.5); Mean Corpuscular Volume 83 fL (80-100); Mean Platelet Volume 11.4 fL (9.1-12.4); Platelet Count 349 K/mm3 (150-400); RDW Coefficient Variation 15.2 % (11.7-14.2); RDW Standard Deviation 46.4 fL (35.1-46.3); White Blood Cell Count 9.73 K/mm3 (4.00-11.30)
[2019-02-27 05:35] LABS: Alanine Aminotransfer (ALT/SGP 10 U/L (12-78); Albumin, Blood 2.9 g/dL (3.4-5.0); Albumin/Globulin Ratio 0.7 (0.8-1.8); Alk Phos 83 U/L (50-136); Anion Gap 9 mmol/L (6-16); Aspartate Aminotrans (AST/SGOT 11 U/L (12-37); Bilirubin, Total 0.3 mg/dL (0.1-1.0); Blood Urea Nitrogen 30 mg/dL (8-24); Bun/Creatinine Ratio 50.4 (12.0-20.0); CO2, Blood 20 mmol/L (21-32); Calcium, Blood 9.9 mg/dL (8.5-10.1); Chloride, Blood 112 mmol/L (98-108); Glomerular Filtration Rate >60 (60-); Glucose, Blood 93 mg/dL (70-99); Potassium, Blood 4.5 mmol/L (3.5-5.5); Sodium, Blood 141 mmol/L (136-145); Total Protein, Blood 6.9 g/dL (6.4-8.2)
--- NOTE | 2019-02-27 14:20 | NUR ---
PT DCD HOME WITH . RX FAXED TO PHARMACY PER PT REQUEST. ALL INSTRUCTIONS REVIEWED WITH PT AND WHO VERBALIZE AN UNDERSTANDING. ALL BELONGINGS SENT WITH PT/. IV DCD WITH NO ISSUES. PT TRANSPORTED VIA STRETCHER. PT STABLE UPON DC.
== END 2019-02-27 14:19 | disposition home health service (06) ==
LOC: ER 15:57 → MEDS 15:58
PROVIDERS: Emergency Medicine; ADMIT Internal Medicine
DX: I95.9 Hypotension, unspecified (principal); E83.52 Hypercalcemia; E86.0 Dehydration; R53.1 Weakness; M16.12 Unilateral primary osteoarthritis, left hip; I11.0 Hypertensive heart disease with heart failure; I50.32 Chronic diastolic (congestive) heart failure; K21.9 Gastro-esophageal reflux disease without esophagitis; E78.5 Hyperlipidemia, unspecified; E03.9 Hypothyroidism, unspecified; G47.30 Sleep apnea, unspecified; E66.01 Morbid (severe) obesity due to excess calories; Z86.718 Personal history of other venous thrombosis and embolism; Z79.01 Long term (current) use of anticoagulants; Z79.899 Other long term (current) drug therapy
CPT/HCPCS: 36415; 51702; 80053; 81003; 82272; 83036; 84484; 85025; 85027; 93005; 93010; 96360-59; 96361-59; 96374; 96375; 99285-25; A9270-GY; G0378; J1885; J3010; J7030; J7120

== ENCOUNTER 2019-03-03 06:32 | Emergency (ER) | payer OTHER ==
[~2019-03-03] VITALS: Ht 167.6 cm; Wt 119.8 kg
[~2019-03-03 06:32] MED LIST changes: +Atenolol25 MG PO; +ESCITALOPRAM OX10 MG PO; +NAPR220 PO
== END 2019-03-03 09:45 | disposition home or self-care (01) ==
LOC: ER 06:32
DX: G89.29 Other chronic pain (principal); M25.562 Pain in left knee; I11.0 Hypertensive heart disease with heart failure; I50.32 Chronic diastolic (congestive) heart failure; E03.9 Hypothyroidism, unspecified; E78.5 Hyperlipidemia, unspecified; K21.9 Gastro-esophageal reflux disease without esophagitis; Z79.899 Other long term (current) drug therapy; Z79.84 Long term (current) use of oral hypoglycemic drugs; Z79.01 Long term (current) use of anticoagulants
CPT/HCPCS: 99283

== ENCOUNTER → 2019-03-11 | Outpatient (CLI) | payer OTHER ==
[2019-03-11 02:41] LABS: Appearance, Urine Cloudy (Clear); Bilirubin, Urine Neg (Neg); Blood, Urine 5+ (Neg); Color, Urine Yellow (P-Yellow); Glucose Qualitative, Urine Neg (Neg); Ketones, Urine Neg (Neg); Leukocyte Esterase, Urine 3+ (Neg); Nitrite, Urine Pos (Neg); Protein, Urine 2+ (Neg); Specific Gravity, Urine 1.015 (1.003-1.022); Urobilinogen, Urine NORM (Normal)
[2019-03-11 02:46] LABS: White Blood Cells, Urine TNTC /hpf (0-5)
[2019-03-11 02:47] LABS: Bacteria Many /hpf; Squamous Epithelial Cells Mod /hpf (Few)
== END | disposition home or self-care (01) ==
LOC: LAB RH 01:50 → EDSTATUS 10:51
PROVIDERS: Nurse Practitioner Adult Health
DX: N39.0 Urinary tract infection, site not specified (principal)
CPT/HCPCS: 81001; 87077; 87086; 87186

== ENCOUNTER 2019-05-05 01:19 | Inpatient (IN) | payer OTHER ==
[~2019-05-05] VITALS: Ht 177.8 cm; Wt 125.7 kg
[~2019-05-05 01:19] MED LIST changes: +DOCU100 PO
[2019-05-05 02:31] LABS: BASOPHILS ABSOLUTE AUTO 0.05 K/mm3 (0.00-0.23); BASOPHILS PERCENT AUTO 0 % (0-2); EOSINOPHILS PERCENT AUTO 0 % (0-6); Hematocrit 38.4 % (33.0-51.0); Hemoglobin 13.2 g/dL (11.5-16.0); IMMATURE GRAN ABSOLUTE AUTO 0.19 K/mm3 (0.00-0.10); IMMATURE GRAN PERCENT AUTO 1 % (0-1); LYMPHOCYTES ABSOLUTE AUTO 1.11 K/mm3 (0.84-5.20); LYMPHOCYTES PERCENT AUTO 4 % (21-46); MONOCYTES ABSOLUTE AUTO 2.08 K/mm3 (0.16-1.47); MONOCYTES PERCENT AUTO 7 % (4-13); Mean Corpuscular HGB Conc 34.4 g/dL (31.5-36.5); Mean Corpuscular Volume 81 fL (80-100); Mean Platelet Volume 10.9 fL (9.1-12.4); NEUTROPHILS ABSOLUTE AUTO 24.95 K/mm3 (1.96-9.15); NEUTROPHILS PERCENT AUTO 88 % (41-73); Platelet Count 285 K/mm3 (150-400); RDW Coefficient Variation 14.1 % (11.7-14.2); RDW Standard Deviation 41.6 fL (35.1-46.3); Red Blood Cell Count 4.72 M/mm3 (3.80-5.20); White Blood Cell Count 28.38 K/mm3 (4.00-11.30)
[2019-05-05 02:34] LABS: PCO2 Arterial 32.4 mmHg (35-45); PO2 Arterial 69.9 mmHg (80-100)
[2019-05-05 02:49] LABS: Albumin, Blood 2.8 g/dL (3.4-5.0); Albumin/Globulin Ratio 0.7 (0.8-1.8); Bilirubin, Total 0.7 mg/dL (0.1-1.0); Bun/Creatinine Ratio 27.3 (12.0-20.0); Calcium, Blood 9.1 mg/dL (8.5-10.1); Creatinine, Blood 1.39 mg/dL (0.40-1.00); Globulin, Blood 3.9 g/dL (2.2-4.0); Total Protein, Blood 6.7 g/dL (6.4-8.2)
[2019-05-05 02:55] LABS: CPK Creatine Kinase 253 U/L (26-193); Creatine Kinase MB 2.9 ng/mL (0.0-3.6); Creatine Kinase MB Index 1.1 (0.0-4.0); Ethanol (Alcohol), Blood, Med <3 mg/dL; Magnesium, Blood 1.5 mg/dL (1.6-2.4); Troponin I <0.015 ng/mL (0.000-0.040)
[2019-05-05 03:11] LABS: Influenza A Negative (NEGATIVE); Influenza B Negative (NEGATIVE)
[2019-05-05 03:12] LABS: Appearance, Urine Turbid (Clear); Blood, Urine 4+ (Neg); Color, Urine Brown (P-Yellow); Glucose Qualitative, Urine Neg (Neg); Ketones, Urine Neg (Neg); Leukocyte Esterase, Urine 3+ (Neg); Nitrite, Urine Neg (Neg); Protein, Urine 3+ (Neg); Urobilinogen, Urine 1+ (Normal)
[2019-05-05 03:15] LABS: Bilirubin, Urine 1+ (Neg)
[2019-05-05 03:20] LABS: Bacteria Many /hpf; Red Blood Cells, Urine 0-2 /hpf (0-2); Squamous Epithelial Cells Few /hpf (Few); White Blood Cells, Urine TNTC /hpf (0-5)
[2019-05-05 03:30] LABS: U Amphetamine Screen Not Detected; U Barbituate Screen Not Detected; U Benzodiazapine Screen Not Detected; U Buprenorphine Screen Not Detected; U Cannabinoids Screen Not Detected; U Cocaine Screen Not Detected; U Methadone Screen Not Detected; U Methamphetamine Screen Not Detected; U Opiates Screen DETECTED; U Oxycodone Screen Not Detected; U Phencyclidine Screen Not Detected; U Propoxyphene Screen Not Detected
[2019-05-05] MEDS ORDERED: POLY500 PO (10:11)
[2019-05-05] MEDS ORDERED: Prinivil10 MG PO (10:13)
[2019-05-05] MEDS ORDERED: GABA100 PO (10:17)
--- NOTE | 2019-05-05 11:37 | NUR ---
SHIFT SUMMARY/ER ADMIT REPORT REC FROM YUKO JULIAN RN @ 0730, PT TO ROOM @ 0740 REMIANS ONLY RESPONSIVE TO PAIN (LLE PAIN), VSS, O2 SATS MONITORED UNTIL PT XFER'D TO PCU @ 1130 (REMAINED ABOVE 90 ON 4.5L OXY). REPORT CALLED TO LIAM SABILLONU RN @ 1120, PT TRANSPORTED IN BED TO U 2 @ 1130, CORPORATE COMPLIANCE DIRECTOR @ BEDSIDE AT COMPLETE OF XFER.
--- NOTE | 2019-05-05 13:11 | NUR ---
NOTIFIED OF LOW BP AND MAP OF 59. CRITICAL CARE CONSULT, 1 LITER NS BOLUS, ICU TRANSFER AND A STAT LACTIC ACID HAS BEEN ORDERED. BOLUS INITIATED AT THIS TIME. LAB NOTIFIED OF STAT LACTIC. WILL CALL ICU FOR TRANSFER.
--- NOTE | 2019-05-05 13:50 | NUR ---
PT TRANSFERRED TO UNIT FROM PCU AT 1330. REPORT FROM INTERLOCKING TOWER OPERATOR. PT ARRIVES RESPONSIVE TO PAINFUL STIMULI, YELLING WHEN ROLLED, "MY LEG." DOES NOT ANSWER QUESTIONS OR FOLLOW COMMANDS. WHEN ROLLED TO BACK, PT APPEARS TO FALL ASLEEP WHEN UNDISTURBED. PT HYPOTENSIVE, 1L BOLUS STARTED. PICC NURSE AT BEDSIDE FOR PLACEMENT. ON 5L VIA OXYMIZER. LUNGS CLEAR. ABD OBESE, SOFT, NON TENDER. PT PALE, DRY. SKIN TO LOWER ABD AND PERIAREA RED. WILL CONTINUE TO MONITOR.
--- NOTE | 2019-05-05 14:52 | NUR ---
LEVOPHED INFUSING VIA PICC TO LUE. WILL TITRATE FOR MAP >65. IV TO RFA INFILTRATED WHILE INFUSING NS BOLUS. IV D/C'D, PRESSURE DRESSING APPLIED. PT CONTINUES TO MOAN AND YELL WHEN DISTURBED. CLOUDY CHI URINE IN DELUNA BAG. LACTIC ACID COLLECTED AND SENT TO LAB.
--- NOTE | 2019-05-05 17:25 | NUR ---
SHIFT SUMMARY PT TRANSFERRED TO UNIT FROM PCU FOR HYPOTENSION. ADMITTED FOR SEPSIS. PICC LINE STARTED, LEVOPHED TITRATED FOR MAP >65, INFUSING AT 15 MCG/MIN AND VASOPRESSIN AT 0.04 UNITS/MIN. PT YELLS INCONSOLABLY AND INCOHERANT c CARE. APPEARS TO SLEEP WHEN UNDISTURBED. TURBID CHI URINE IN DELUNA DRAINAGE BAG. CALL PLACED TO [facility] FOR PT'S BASELINE. STAFF STATES PT INTERMITTANTLY CONFUSED, BUT TYPICALLY ABLE TO ANSWER MOST QUESTIONS. FREQUENTLY C/O PAIN TO HIPS BILATERALLY AND REFUSES CARE D/T PAIN. KNOWN DVT TO LLE, DX'D 04/13. LUNGS CLEAR. ABD, ROUND, SOFT, NON TENDER. BT X 4. REPORT TO ONCOMING NURSE.
--- NOTE | 2019-05-05 19:03 | NUR ---
PT HAD EPISODE OF BRADYCARDIA, RATE 50'S, c PAUSES. WHEN I ENTERED PT'S ROOM, PT BEGAN YELLING AND RATE INCREASED TO 80'S. WILL REPORT TO NOC NURSE.
--- NOTE | 2019-05-05 19:33 | NUR ---
Pt resting in bed with her eyes closed yelling "Shiva" over and over. Reviewed chart and discussed case with bedside RN's for day shift and material handler 1st shift. Pt's plans to visit tomorrow. Concerns discussed regarding 's understanding of life sustaining measures. Will F/U with Pt when is present. Palliative Care will remain available.
[2019-05-06 03:40] LABS: Base Excess Venous -10.2 mmol/L; Bicarbonate Venous 16.9 mmol/L (24.0-30.0); PCO2 Venous 32.5 mmHg (38-42); PO2 Venous 51.7 mmHg (38-42)
[2019-05-06 03:48] LABS: BASOPHILS ABSOLUTE AUTO 0.02 K/mm3 (0.00-0.23); BASOPHILS PERCENT AUTO 0 % (0-2); EOSINOPHILS PERCENT AUTO 0 % (0-6); Hematocrit 30.5 % (33.0-51.0); Hemoglobin 10.6 g/dL (11.5-16.0); IMMATURE GRAN ABSOLUTE AUTO 0.33 K/mm3 (0.00-0.10); IMMATURE GRAN PERCENT AUTO 2 % (0-1); LYMPHOCYTES ABSOLUTE AUTO 1.01 K/mm3 (0.84-5.20); LYMPHOCYTES PERCENT AUTO 5 % (21-46); MONOCYTES ABSOLUTE AUTO 1.39 K/mm3 (0.16-1.47); MONOCYTES PERCENT AUTO 7 % (4-13); Mean Corpuscular HGB 28.1 pg (26.0-34.0); Mean Corpuscular HGB Conc 34.8 g/dL (31.5-36.5); Mean Corpuscular Volume 81 fL (80-100); NEUTROPHILS ABSOLUTE AUTO 18.17 K/mm3 (1.96-9.15); NEUTROPHILS PERCENT AUTO 87 % (41-73); Platelet Count 229 K/mm3 (150-400); RDW Coefficient Variation 14.3 % (11.7-14.2); RDW Standard Deviation 41.8 fL (35.1-46.3); Red Blood Cell Count 3.77 M/mm3 (3.80-5.20); White Blood Cell Count 20.92 K/mm3 (4.00-11.30)
[2019-05-06 04:12] LABS: Alanine Aminotransfer (ALT/SGP 24 U/L (12-78); Albumin, Blood 2.8 g/dL (3.4-5.0); Alk Phos 101 U/L (50-136); Anion Gap 10 mmol/L (6-16); Aspartate Aminotrans (AST/SGOT 54 U/L (12-37); Bilirubin, Total 0.6 mg/dL (0.1-1.0); Blood Urea Nitrogen 33 mg/dL (8-24); Bun/Creatinine Ratio 42.3 (12.0-20.0); CO2, Blood 17 mmol/L (21-32); Calcium, Blood 7.7 mg/dL (8.5-10.1); Chloride, Blood 115 mmol/L (98-108); Creatinine, Blood 0.78 mg/dL (0.40-1.00); Globulin, Blood 2.8 g/dL (2.2-4.0); Glomerular Filtration Rate >60 (60-); Glucose, Blood 167 mg/dL (70-99); Magnesium, Blood 1.8 mg/dL (1.6-2.4); Phosphorus, Blood 2.2 mg/dL (2.5-4.9); Potassium, Blood 3.1 mmol/L (3.5-5.5); Sodium, Blood 142 mmol/L (136-145); Total Protein, Blood 5.6 g/dL (6.4-8.2)
--- NOTE | 2019-05-06 06:15 | NUR ---
SUMMARY PATIENT AWAKE OFF AND ON T/O NIGHT. YELLING OUT FREQUENTLY. YELLING MORE WHEN PROVIDING CARE. SERNA BUT NOT ALWAYS TO DIRECTIONS. PATIENT APPEARS TO ANSWER QUESTIONS MORE THIS AM. LEFT PUPIL APPEARING SLIGHTLY LARGER THAN RIGHT AT TIMES, THIS MORNING BOTH ARE EQUIL AND REACTIVE. LEVOPHED AND VASOPRESSIN CONTINUE, LEVOPHED TITRATED DOWN TO 3MCG. DOCTOR JONH CALLED THIS MORNING REGARDING ECTOPY WITH REPOSITIONING AND LOW PHOS AND POTASSIUM, KPHOS ORDERED. PATIENT INCONT OF SOFT FORMED STOOL SEVERAL TIMES T/O NIGHT.
--- NOTE | 2019-05-06 08:00 | NUR ---
AM ASSESSMENT: REC'D BEDSIDE REPORT FROM ELVA DANIEL. PT IS ALERT AND MOANING/YELLING OUT. SPEECH IS GARBLED AND DIFFICULT TO UNDERSTAND. PT RE-ORIENTED, BUT REMAINS UNABLE TO BE CALMED WITH VERBAL SUPPORT. PT IS ORIENTED TO SELF/PLACE, REPORTS SHE USED TO LIVE IN [place] UNTIL ABOUT JULY/AUGUST AND HAS BEEN AT [facility] SINCE. WHEN ASKING THE PT WHY SHE IS CONSTANTLY YELLING OUT, SHE STATES, "ASK MY , HE CAN TELL YOU." LUNGS ARE CLEAR BUT DIMINISHED IN THE BILATERAL BASES. 02 SATS >90% ON RA. HR REGULAR, SR-ST 90-100'S RANGE. NS @250ML/HR. PICC IN LT UA WITH 3 LEVOPHED @ 3MCG/MIN TO MAINTAIN BP'S. ABD SOFT/ROUND/TENDER IN ALL QAUDS PER PT. BT'S SLIGHTLY HYPOACTIVE X 4 QAUDS. PT NPO AT THIS TIME R/T NEURO STATUS AND INABILITY TO FOLLOW COMMANDS.
--- NOTE | 2019-05-06 10:34 | NUR ---
PT UPDATE: PT YELLING FOR MOST OF THE MORNING. UNABLE TO CALM PT WITH PRESENCE AT THE BEDSIDE. PT'S IS NOW HERE. NAREN WAS UPDATED TO PT'S CURRENT STATUS AND PT IS NOW CALM/RESTING.
--- NOTE | 2019-05-06 11:23 | NUR ---
VINOD MEDRANO IN TALKING WITH PT/.
--- NOTE | 2019-05-06 11:59 | NUR ---
NATHAN FROM PALLATIVE CARE HERE TO TALK WITH PT/ FOR MORAL SUPPORT.
--- NOTE | 2019-05-06 12:09 | NUR ---
Initial Visit: Palliative Care Consult for Advanced Care Planning. Pt is resting in bed upon arrival. Pt is A&OX3 and states she can not remember reason for hospital stay. Reorientated Pt regarding reason for hospital stay. Pt appears anxious as evidenced by constant moaning. Alfred at bedside. Alfred reports Pt is living at [facility] temporarily until she can have her hip replaced. Alfred reports plan is for Pt to loose enough weight to have hip replacement safely. Alfred reports just him and Pt at home. No children but does have pets that are treated like children. Alfred reports no questions or concerns at this time. Spoke with bedside ELVA Gillis and discussed case. Palliative Care will remain available for therapeutic visits for Pt and .
--- NOTE | 2019-05-06 12:41 | NUR ---
CXR DONE TO CONFIRM PICC LINE PLACEMENT PT HAS A SHORT RUN OF VT WHILE LYING ON LT SIDE FOR NOC SHIFT. AWAITING RADIOLOGY REPORT.
--- NOTE | 2019-05-06 17:01 | NUR ---
SHIFT SUMMARY: PT IS ALERT AND ORIENTED TO SELF/FAMILY/PLACE. PT ABLE TO MAKE NEEDS KNOWN. DOES NOT USE CALL LIGHT AND YELLS LOUDLY WHEN SHE NEEDS SOMETHING DESPITE EDUCATION AND CALL LIGHT BEING WITHIN REACH. PT DOES NOT FOLLOW ANY COMMANDS. ANSWERS QUESTIONS APPROPRIATELY, BUT SPEECH REMAINS MUMBLED. PT MUCH CALMER WHEN HER IS AT THE BEDSIDE WITH HER. LUNGS REMAIN CLEAR BUT DIMINISHED IN THE BILATERAL BASES. SPO2 SATS >90% ON RA. HR REGULAR, SR- 50-60'S. NS DECREASED TO 100ML/HR. LEVOPHED ON STANDBY AND BP'S STABLE. PICC IN THE LT UA, WHICH WAS PULLED BACK 2CM THIS SHIFT BY THIS RN. TEMP DELUNA PROBE WITH 1450ML OF CHI COLORED URINE OUT THIS SHIFT. PT WAS INCONTINENT OF 2 LARGE BROWN, SOFT BM'S.
--- NOTE | 2019-05-06 18:57 | NUR ---
Inital spiritual care note: I met with pt's spouse, Alfred, at bedside. Viktoriya slept peacefully throughout conversation. Alfred appears worried and rather frail. He says they live in [place] and he can only make it up here every other day. They have been for 43 years, and it is clear that he loves her. Alfred does not appear to grasp pt's dx. We spoke at length about Viktoriya's code status. Alfred would like us to "do really gentle chest compressions for a few minutes." I gently explained to him the purpose of CPR, and that CPR only takes place if the pt's heart has stopped beating. Also that CPR requires deep compressions. He then admitted that both he and Viktoriya have "paperwork at home that says DNR, no intubation." We spoke a while longer and he then told me he realized pt should be DNR/DNI per her stated wishes. I provided genlte director counseling bureau, prayer, and assurance of excellent care/attention to his beloved . Informed RN of our conversation. I will remain available.
--- NOTE | 2019-05-06 19:30 | NUR ---
REPORTED OFF TO ELVA KAY WHOM IS ASSUMING CARE OF THIS PT.
--- NOTE | 2019-05-06 22:25 | NUR ---
ASSUMED PT CARE AT 1915 PT IS ALERT AND ORIENTED AND ABLE TO MAKE HER BASIC NEEDS KNOWN. SHE IS VERY EMOTIONAL AND MARA/HOLLERS OUT FREQUENTLY. NOTED TO BE VERY ANXOUS REGARDING ANY SORT OF MOVEMENT TO LEFT LEG. PT STATES AND ACKNOWLEDGES THAT SHE HAS TO LOSE 150LBS IN ORDER TO GET THE SURGERY TO REPLACE HER HIP; HOWEVER, SHE STATES SHE ALREADY LOST THAT IN "POOP". PT NEEDS REDIRECTING FREQUENTLY; HOWEVER, PT IS NOT VERY CONSOLABLE OR REDIRECTABLE. SHE TENDS TO FIXATE ON CERTAIN THINGS AND BECOMES VERY EMOTIONAL/DISTRAUGHT. PT REPOSITIONED AND MEDICATED FOR PAIN; HOWEVER, SHE STILL TENDS TO HOLLER OUT. NO FAMILY AT BEDSIDE AT THIS TIME. FRIENDS STOPPED IN TO SEE PT AT CHANGE OF SHIFT, BUT DIDN'T STAY LONG. CALL LIGHT IS WITHIN REACH WITH SOOTHING MUSIC PLAYING IN THE BACKGROUND TO HELP PT REMAIN CALM AND RESTED. WILL CONTINUE TO MONITOR.
[2019-05-07 03:28] LABS: BASOPHILS ABSOLUTE AUTO 0.01 K/mm3 (0.00-0.23); BASOPHILS PERCENT AUTO 0 % (0-2); EOSINOPHILS PERCENT AUTO 0 % (0-6); Hemoglobin 10.3 g/dL (11.5-16.0); IMMATURE GRAN ABSOLUTE AUTO 0.14 K/mm3 (0.00-0.10); IMMATURE GRAN PERCENT AUTO 1 % (0-1); LYMPHOCYTES PERCENT AUTO 10 % (21-46); MONOCYTES ABSOLUTE AUTO 0.92 K/mm3 (0.16-1.47); MONOCYTES PERCENT AUTO 7 % (4-13); Mean Corpuscular HGB 28.4 pg (26.0-34.0); Mean Corpuscular HGB Conc 35.5 g/dL (31.5-36.5); Mean Corpuscular Volume 80 fL (80-100); Mean Platelet Volume 10.8 fL (9.1-12.4); NEUTROPHILS ABSOLUTE AUTO 11.72 K/mm3 (1.96-9.15); NEUTROPHILS PERCENT AUTO 83 % (41-73); Platelet Count 223 K/mm3 (150-400); RDW Coefficient Variation 14.2 % (11.7-14.2); RDW Standard Deviation 41.4 fL (35.1-46.3); Red Blood Cell Count 3.63 M/mm3 (3.80-5.20); White Blood Cell Count 14.19 K/mm3 (4.00-11.30)
[2019-05-07 03:44] LABS: Albumin, Blood 2.9 g/dL (3.4-5.0); Anion Gap 10 mmol/L (6-16); Blood Urea Nitrogen 22 mg/dL (8-24); Bun/Creatinine Ratio 46.4 (12.0-20.0); CO2, Blood 18 mmol/L (21-32); Calcium, Blood 7.7 mg/dL (8.5-10.1); Chloride, Blood 117 mmol/L (98-108); Creatinine, Blood 0.47 mg/dL (0.40-1.00); Glomerular Filtration Rate >60 (60-); Glucose, Blood 104 mg/dL (70-99); Phosphorus, Blood 1.5 mg/dL (2.5-4.9); Potassium, Blood 2.5 mmol/L (3.5-5.5); Sodium, Blood 145 mmol/L (136-145)
--- NOTE | 2019-05-07 05:08 | NUR ---
END OF SHIFT SUMMARY NO SIGNIFICANT CHANGES SINCE LAST ENTRY. PT MEDICATED FOR FENTANYL PRIOR TO EACH TURN. REMAINS VERY EMOTIONAL AND HOLLERS OUT WHEN TOUCHED. APPEARS TO BE MORE ANXIETY DRIVEN THAN ANYTHING; THEREFORE, OBTAINED ORDERS FROM DR. BORJA FOR PRN ATIVAN. VSS. CALL LIGHT LEFT WITHIN REACH; PT IS ABLE TO MAKE HER NEEDS KNOWN.
--- NOTE | 2019-05-07 08:00 | NUR ---
AM ASSESSMENT: PT IS DROWSY BUT AWAKENS TO VERBAL STIMULI. SPEECH IS MUMBLED AND UNABLE TO UNDERSTAND. PT UNABLE TO FOLLOW DIRECTIONS AT THIS TIME AND MOANS/YELLS OUT. ALMOST CONSTANTLY AT TIMES, DESPITE POSITION CHANGES FOR PAIN AND BEING MEDICATED W/FENTANYL. LUNGS ARE CLEAR T/O BUT DIMINISHED IN THE BILATERAL BASES. SPO2 MID 90% ON RA. HR REGULAR, SR-70'S RANGE. EDEMA-SEE NN. NS-TKO. PT CURRENTLY REC'ING KPHOS FOR LOW PHOS/POTASSIUM LEVELS. PICC IN LT UA WITH DRSG INTACT. ABD LARGE/ROUND/NON-TENDER. BT'S HYPOACTIVE X4. PT HAS HAD POOR APPETITE. HOLDING BREAKFAST AND AM MEDS FOR NOW R/T DROWSINESS. -FULL CODE- WILL ADDRESS WITH PT/ TODAY STATES PT HAS DNR PAPERWORK AT HOME. -CBG'S AC/HS -ENCOURAGE SELF CARE -MONITOR/TX/REASSESS PAIN -TURN Q2HR
--- NOTE | 2019-05-07 12:59 | NUR ---
DR SAEED IN TO ASSESS PT. INFORMED HER THAT PT WAS CHANGED TO MEDICAL FLOOR STATUS AND CLEAN RICE BROKER SIGNED OFF PT'S CASE.
--- NOTE | 2019-05-07 16:32 | NUR ---
SHIFT SUMMARY: PT IS SLIGHTLY DROWSY, BUT AWAKENS WITH VERBAL STIMULI. PT HAS CONTINUOUS HIP PAIN THAT SHE HAS BEEN MEDICATED WITH FENTANYL IVP AND BACLOFEN PO. PT BEING REPLACED WITH POTASSIUM FOR LOW LEVELS. LUNGS ARE CLEAR T/O AND SP02 >90% ON RA. HR REGULAR, SR-70'S RANGE. PT IS NOW MEDICAL FLOOR STATUS AND WILL TNX WHEN A BED IS AVAILABLE.
[2019-05-07 16:55] LABS: Anion Gap 9 mmol/L (6-16); Blood Urea Nitrogen 18 mg/dL (8-24); Bun/Creatinine Ratio 35.9 (12.0-20.0); CO2, Blood 20 mmol/L (21-32); Calcium, Blood 7.7 mg/dL (8.5-10.1); Chloride, Blood 114 mmol/L (98-108); Glomerular Filtration Rate >60 (60-); Glucose, Blood 106 mg/dL (70-99); Potassium, Blood 2.9 mmol/L (3.5-5.5); Sodium, Blood 143 mmol/L (136-145)
--- NOTE | 2019-05-07 17:40 | NUR ---
REPORTED OFF TO ELVA BECKHAM WHOM WILL ASSUME CARE OF THIS PT ONCE THEY ARE TNX'D TO 349.
--- NOTE | 2019-05-07 17:51 | NUR ---
PT TAKEN VIA BED BY SHELDON CANALES TO 349. CHART, MEDS, AND ALL PT BELONGINGS SENT WITH PT.
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
[2019-05-08 05:16] LABS: BASOPHILS ABSOLUTE AUTO 0.01 K/mm3 (0.00-0.23); BASOPHILS PERCENT AUTO 0 % (0-2); EOSINOPHILS ABSOLUTE AUTO 0.02 K/mm3 (0.00-0.68); EOSINOPHILS PERCENT AUTO 0 % (0-6); Hematocrit 31.6 % (33.0-51.0); Hemoglobin 11.1 g/dL (11.5-16.0); IMMATURE GRAN PERCENT AUTO 1 % (0-1); LYMPHOCYTES ABSOLUTE AUTO 1.86 K/mm3 (0.84-5.20); LYMPHOCYTES PERCENT AUTO 16 % (21-46); MONOCYTES ABSOLUTE AUTO 1.02 K/mm3 (0.16-1.47); MONOCYTES PERCENT AUTO 9 % (4-13); Mean Corpuscular HGB 27.8 pg (26.0-34.0); Mean Corpuscular HGB Conc 35.1 g/dL (31.5-36.5); Mean Corpuscular Volume 79 fL (80-100); Mean Platelet Volume 11.9 fL (9.1-12.4); NEUTROPHILS ABSOLUTE AUTO 8.58 K/mm3 (1.96-9.15); NEUTROPHILS PERCENT AUTO 74 % (41-73); Platelet Count 233 K/mm3 (150-400); RDW Coefficient Variation 14.2 % (11.7-14.2); RDW Standard Deviation 40.5 fL (35.1-46.3); White Blood Cell Count 11.59 K/mm3 (4.00-11.30)
--- NOTE | 2019-05-08 05:18 | NUR ---
WHEEL ROLLER SUMMARY PT A/O X1 TO SELF. PT WAS AGITATED MOST OF NIGHT OFF AND ON. YELLS OUT AND MOANS. PT SLOW TO RESPONSE AND HAS A HARD TIME COMMUNICATING NEEDS. ATIVAN IV PUSH 1MG GIVEN X1. THIS SEEMED TO HELP A LITTLE; PT STILL WOULD WAKE UP EVERY NOW AND THEN AND MOAN. PT HAS PULLED OUT IV PLACED IN THE RIGHT CHEST EARILER IN SHIFT. STAFF HAS ASKED PT MANY TIMES WHAT IS MAKING HER UNCOMFORTABLE, BUT PT JUST MOANS AND SAYS "I DON'T KNOW". REPOSITION Q 2 HOURS AND UNINTERRUPTED REST PROVIDED. PT ALSO PULLED OUT PICC LINE PLACED IN LEFT UPPER ARM. NEW IV PLACED ON RIGHT WRIST AND COVERED IN COBAN/BANDANET. OTHERWISE, VSS WILL CONTINUE TO MONITOR.
[2019-05-08 05:40] LABS: Albumin, Blood 2.7 g/dL (3.4-5.0); Anion Gap 7 mmol/L (6-16); Blood Urea Nitrogen 12 mg/dL (8-24); Bun/Creatinine Ratio 28.5 (12.0-20.0); CO2, Blood 21 mmol/L (21-32); Calcium, Blood 8.4 mg/dL (8.5-10.1); Chloride, Blood 117 mmol/L (98-108); Creatinine, Blood 0.42 mg/dL (0.40-1.00); Glomerular Filtration Rate >60 (60-); Glucose, Blood 95 mg/dL (70-99); Potassium, Blood 4.2 mmol/L (3.5-5.5); Sodium, Blood 145 mmol/L (136-145)
[2019-05-08 06:02] LABS: Phosphorus, Blood 0.6 mg/dL (2.5-4.9)
--- NOTE | 2019-05-08 06:40 | NUR ---
ATTEMPTED TO REACH HOSPITALIST @ 0626 OF CRITICAL LAB VALUE OF 0.6 PHOSPHORUS WITHOUT SUCCESS. WILL PASS THIS ON TO AM NURSE.
--- NOTE | 2019-05-08 06:56 | NUR ---
HOSPITALIST-DR. PINZON CALLED BACK AND NOTIFIED OF CRITICAL LAB VALUE. STATED HE WOULD REVIEW PT'S CHART AND "TAKE CARE OF IT". WILL NOTIFY AM NURSE.
[2019-05-09 05:20] LABS: BASOPHILS ABSOLUTE AUTO 0.02 K/mm3 (0.00-0.23); BASOPHILS PERCENT AUTO 0 % (0-2); EOSINOPHILS ABSOLUTE AUTO 0.18 K/mm3 (0.00-0.68); EOSINOPHILS PERCENT AUTO 2 % (0-6); Hematocrit 33.6 % (33.0-51.0); Hemoglobin 11.7 g/dL (11.5-16.0); IMMATURE GRAN ABSOLUTE AUTO 0.15 K/mm3 (0.00-0.10); IMMATURE GRAN PERCENT AUTO 2 % (0-1); LYMPHOCYTES ABSOLUTE AUTO 2.66 K/mm3 (0.84-5.20); LYMPHOCYTES PERCENT AUTO 27 % (21-46); MONOCYTES ABSOLUTE AUTO 0.96 K/mm3 (0.16-1.47); MONOCYTES PERCENT AUTO 10 % (4-13); Mean Corpuscular HGB 27.7 pg (26.0-34.0); Mean Corpuscular HGB Conc 34.8 g/dL (31.5-36.5); Mean Corpuscular Volume 80 fL (80-100); Mean Platelet Volume 11.6 fL (9.1-12.4); NEUTROPHILS ABSOLUTE AUTO 5.84 K/mm3 (1.96-9.15); NEUTROPHILS PERCENT AUTO 60 % (41-73); Platelet Count 242 K/mm3 (150-400); RDW Coefficient Variation 14.3 % (11.7-14.2); RDW Standard Deviation 41.2 fL (35.1-46.3); Red Blood Cell Count 4.22 M/mm3 (3.80-5.20); White Blood Cell Count 9.81 K/mm3 (4.00-11.30)
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
[2019-05-09 05:41] LABS: Albumin, Blood 2.7 g/dL (3.4-5.0); Anion Gap 8 mmol/L (6-16); Blood Urea Nitrogen 9 mg/dL (8-24); Bun/Creatinine Ratio 22.7 (12.0-20.0); CO2, Blood 22 mmol/L (21-32); Calcium, Blood 9.1 mg/dL (8.5-10.1); Chloride, Blood 112 mmol/L (98-108); Glomerular Filtration Rate >60 (60-); Glucose, Blood 82 mg/dL (70-99); Phosphorus, Blood 1.9 mg/dL (2.5-4.9); Potassium, Blood 4.2 mmol/L (3.5-5.5); Sodium, Blood 142 mmol/L (136-145)
--- NOTE | 2019-05-09 09:16 | NUR ---
Assisted PRINCIPAL EXAMINER to help pt turn. Viktoriya reports she is not hungry this morning. She wants to know how much she weighs. She reports that she needs to weigh less than 250 pounds to have surgery. She is anxious with turning, however she is easily redirected with distraction. Oral care completed. Pt reports left hip discomfort with turning.
--- NOTE | 2019-05-09 11:34 | NUR ---
PATIENT PULLED OUT IV AGAIN. WAS WRAPPED WITH COBAN AND TUBEX.PER DR. LANDRUM WILL SWITCH IV MEDS -HAS 2- TO ORAL. NO IV ASSESS.
--- NOTE | 2019-05-09 18:41 | NUR ---
ALERT TO SELF AND ASKS ABOUT ALL DAY. REFUSES FOOD TODAY. PATIENT IS USED TO FEEDING HER. MOANS OR CRIES MOST OF DAY. SEEMED TO BE HAVING VISUAL HALLUCINATIONS IN A.M. --"THE CEILING IS FALLING." NO OBVIOUS HALLUCINATIONS IN AFTERNOON. NO IV ASSESS NEEDED PER . UNLABORED RESPIRATIONS. REPORT TO NIGHT RN
--- NOTE | 2019-05-09 22:50 | NUR ---
BEGINNING SHIFT SUMMARY ASSUMED CARE OF PT AT 1900. PT WAS LYING IN BED. PT FREQUENTLY WHIMPERS AND CRIES WHEN TALKING TO HER OR REPOSITIONING HER. PT IS ALERT AND CONFUSED AT TIMES. HEART SOUNDS REGULAR, LUNG SOUNDS CLEAR. PT HAS HEEL PROTECTORS ON. PT C/O PAIN IN HER HIP, MEDICATED PER EMAR. PT IS CURRENTLY SLEEPING, CALL LIGHT IN REACH, BED IN LOWEST POSTION, WILL CONTINUE TO MONITOR.
--- NOTE | 2019-05-10 05:30 | NUR ---
END SHIFT SUMMARY PT CONTINUES TO WHIMPER AND CRY WHEN MOVED OR ASKED ABOUT HOW SHE FEELS. PT WAS AWAKE MOST OF THE NIGHT STATING THAT SHE SLEEPS TO MUCH ANYWAYS. CALL LIGHT IN REACH, BED INLOWEST POSTION, WILL CONTINUE TO MONITOR UNTIL DAYSHIFT NURSE ARRIVES.
[2019-05-10 08:30] LABS: Hematocrit 38.3 % (33.0-51.0); Hemoglobin 13.4 g/dL (11.5-16.0); Mean Corpuscular HGB 27.7 pg (26.0-34.0); Mean Corpuscular Volume 79 fL (80-100); Platelet Count 231 K/mm3 (150-400); RDW Coefficient Variation 14.2 % (11.7-14.2); RDW Standard Deviation 41.1 fL (35.1-46.3); Red Blood Cell Count 4.83 M/mm3 (3.80-5.20); White Blood Cell Count 13.24 K/mm3 (4.00-11.30)
--- NOTE | 2019-05-10 08:32 | NUR ---
PATIENTS ATTENDS WERE CHECKED AND THEY WERE CLEAN AND DRY. PATIENT WAS ALSO REPOSTIONED.
[2019-05-10 08:45] LABS: Alanine Aminotransfer (ALT/SGP 37 U/L (12-78); Albumin, Blood 2.9 g/dL (3.4-5.0); Albumin/Globulin Ratio 0.8 (0.8-1.8); Alk Phos 92 U/L (50-136); Anion Gap 7 mmol/L (6-16); Aspartate Aminotrans (AST/SGOT 28 U/L (12-37); Bilirubin, Total 0.5 mg/dL (0.1-1.0); Blood Urea Nitrogen 10 mg/dL (8-24); Bun/Creatinine Ratio 18.2 (12.0-20.0); CO2, Blood 24 mmol/L (21-32); Calcium, Blood 9.6 mg/dL (8.5-10.1); Chloride, Blood 110 mmol/L (98-108); Creatinine, Blood 0.55 mg/dL (0.40-1.00); Globulin, Blood 3.5 g/dL (2.2-4.0); Glomerular Filtration Rate >60 (60-); Glucose, Blood 92 mg/dL (70-99); Sodium, Blood 141 mmol/L (136-145); Total Protein, Blood 6.4 g/dL (6.4-8.2)
--- NOTE | 2019-05-10 17:19 | NUR ---
SUMMARY PT RESTING QUIETLY IN BED, WAKES EASILY, HAS BEEN REPOSITIONED FREQUENTLY, MED PER EMAR FOR PAIN, PT WITH OCC CONFUSION, SPOUSE HAS BEEN IN TO VISIT, PLAN IS TO DC TO [facility] TOMORROW, VSS, WILL CONT TO MONITOR
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
--- NOTE | 2019-05-11 04:57 | NUR ---
END SHIFT SUMMARY PT HAS BEEN PAINFUL T/O THE NIGHT. PT HAS BEEN REPOSTIONED SEVERAL TIMES, RECEIVED A KPAD AND MEDICATED PER EMAR. PT IS STILL TEARFUL AND WHIMPERS WHEN ASKED ABOUT HER PAIN OR HOW SHE IS DOING. PT IS CONCERNED THAT SHE CANT MOVE SOME PARTS OF HER BODY. PT IS CURRENTLY STILL C/O PAIN, PT DID NOT SLEEP VERY MUCH TONIGHT. CALL LIGHT IN REACH, BED IN LOWEST POSTION, WILL CONTINUE TO MONITOR UNTIL DAYSHIFT NURSE ARRIVES.
[2019-05-11] MEDS ORDERED: Vsl#3 Capsule1 EACH PO (09:59)
[2019-05-11] MEDS ORDERED: ROXICODONE5 MG PO (10:00)
[2019-05-11] MEDS ORDERED: Bactrim Ds Tab1 EACH PO (10:00)
--- NOTE | 2019-05-11 10:01 | NUR ---
SPOKE WITH HERNANDEZ COORDINATOR AND OK FOR DISCHARGE TO [facility]. [facility] TRANSPORT SCHEDULED FOR 1200. ORDERS FAXED TO [facility].
--- NOTE | 2019-05-11 12:11 | NUR ---
SUMMARY/DISCHARGE PT DISCHARGED TO [facility], REPORT CALLED TO TRAVIS THE NURSE AT [facility], PT MED FOR PAIN PRIOR TO DISCHARGE, [facility] TRANSPORTED VIA [facility]
== END 2019-05-11 12:02 | DRG 871 ==
LOC: ER 01:19 → MEDS 04:32 → ICUE 04:32 → MEDS 07:40 → PCU 11:14 → ICUE 13:27 → MEDS 05-07 17:51 → ENPENDDIS 05-11 09:48 → MEDS 05-11 12:02
PROVIDERS: Emergency Medicine; Internal Medicine; Internal Medicine Critical Care Medicine; ADMIT Hospitalist
PROC: 02HV33Z Insertion of Infusion Device into Superior Vena Cava, Percutaneous Approach (ICD-10-PCS; 2019-05-05)
PROC: 3E033XZ Introduction of Vasopressor into Peripheral Vein, Percutaneous Approach (ICD-10-PCS; principal; 2019-05-06)
DX: A41.51 Sepsis due to Escherichia coli [E. coli] (principal); G92 Toxic encephalopathy; R65.21 Severe sepsis with septic shock; I50.32 Chronic diastolic (congestive) heart failure; Z68.43 Body mass index [BMI] 50.0-59.9, adult; E87.1 Hypo-osmolality and hyponatremia; N12 Tubulo-interstitial nephritis, not specified as acute or chronic; N17.9 Acute kidney failure, unspecified; Z79.84 Long term (current) use of oral hypoglycemic drugs; K21.9 Gastro-esophageal reflux disease without esophagitis; E78.5 Hyperlipidemia, unspecified; E03.9 Hypothyroidism, unspecified; E86.0 Dehydration; E66.01 Morbid (severe) obesity due to excess calories; G47.33 Obstructive sleep apnea (adult) (pediatric); Z86.718 Personal history of other venous thrombosis and embolism; I11.0 Hypertensive heart disease with heart failure; E78.00 Pure hypercholesterolemia, unspecified; E83.39 Other disorders of phosphorus metabolism; M16.0 Bilateral primary osteoarthritis of hip
CPT/HCPCS: 36415; 36569; 36600; 51702; 70450; 71045; 80048; 80053; 80069; 81001; 82140; 82550; 82553; 82803; 82947; 83605; 83690; 83735; 83880; 84100; 84145; 84484; 85025; 85027; 87040; 87077; 87086; 87186; 87804; 93005; 93010; 94660; 94762; 96361-59; 96365-59; 96367-59; 99285-25; A9270; C1751; G0480; J0696; J1644; J1650; J1940; J2060; J2185; J2543; J3010; J3475; J7030; J7050; J7060; P9046

== ENCOUNTER → 2020-02-23 | Outpatient (CLI) | payer OTHER ==
[~2020-02-23] MED LIST changes: +GABA100 PO; +ROXICODONE5 MG PO
[2020-02-23 09:46] LABS: Anion Gap 4 mmol/L (6-16); Blood Urea Nitrogen 27 mg/dL (8-24); Bun/Creatinine Ratio 56.6 (12.0-20.0); CO2, Blood 29 mmol/L (21-32); Calcium, Blood 9.9 mg/dL (8.5-10.1); Chloride, Blood 111 mmol/L (98-108); Creatinine, Blood 0.48 mg/dL (0.40-1.00); Glomerular Filtration Rate >60 (60-); Glucose, Blood 82 mg/dL (70-99); Potassium, Blood 4.9 mmol/L (3.5-5.5); Sodium, Blood 144 mmol/L (136-145)
== END | disposition home or self-care (01) ==
LOC: LAB RH 08:13 → EDSTATUS 14:32
PROVIDERS: Family Medicine
DX: E11.9 Type 2 diabetes mellitus without complications (principal); I50.42 Chronic combined systolic (congestive) and diastolic (congestive) heart failure
CPT/HCPCS: 80048; 83036

== ENCOUNTER → 2020-07-05 | Outpatient (CLI) | payer OTHER | END | disposition home or self-care (01) | LOC: EDSTATUS 11:27 → LAB RH 16:00 | DX: U07.1 COVID-19 (principal) | CPT/HCPCS: U0004 ==

== ENCOUNTER → 2020-08-23 | Outpatient (CLI) | payer OTHER ==
[2020-08-23 14:41] LABS: Anion Gap 6 mmol/L (6-16); Blood Urea Nitrogen 20 mg/dL (8-24); Bun/Creatinine Ratio 41.9 (12.0-20.0); CO2, Blood 26 mmol/L (21-32); Calcium, Blood 9.4 mg/dL (8.5-10.1); Chloride, Blood 109 mmol/L (98-108); Creatinine, Blood 0.48 mg/dL (0.40-1.00); Glomerular Filtration Rate >60 (60-); Glucose, Blood 122 mg/dL (70-99); Sodium, Blood 141 mmol/L (136-145)
== END | disposition home or self-care (01) ==
LOC: EDSTATUS 10:03 → LAB RH 10:45
PROVIDERS: Family Medicine
DX: I50.42 Chronic combined systolic (congestive) and diastolic (congestive) heart failure (principal); E11.9 Type 2 diabetes mellitus without complications
CPT/HCPCS: 80048; 83036

== ENCOUNTER → 2020-09-07 | Outpatient (CLI) | payer OTHER ==
[2020-09-07 13:03] LABS: Hematocrit 37.7 % (33.0-51.0); Hemoglobin 12.9 g/dL (11.5-16.0); Mean Corpuscular HGB 27.9 pg (26.0-34.0); Mean Corpuscular HGB Conc 34.2 g/dL (31.5-36.5); Mean Corpuscular Volume 82 fL (80-100); Mean Platelet Volume 12.9 fL (9.1-12.4); Platelet Count 209 K/mm3 (150-400); RDW Standard Deviation 44.2 fL (35.1-46.3); Red Blood Cell Count 4.62 M/mm3 (3.80-5.20); White Blood Cell Count 10.44 K/mm3 (4.00-11.30)
[2020-09-07 16:16] LABS: Anion Gap 9 mmol/L (6-16); Blood Urea Nitrogen 21 mg/dL (8-24); Bun/Creatinine Ratio 37.6 (12.0-20.0); CO2, Blood 24 mmol/L (21-32); Calcium, Blood 9.8 mg/dL (8.5-10.1); Chloride, Blood 108 mmol/L (98-108); Creatinine, Blood 0.56 mg/dL (0.40-1.00); Glomerular Filtration Rate >60 (60-); Glucose, Blood 122 mg/dL (70-99); Potassium, Blood 3.9 mmol/L (3.5-5.5); Sodium, Blood 141 mmol/L (136-145)
== END | disposition home or self-care (01) ==
LOC: EDSTATUS 10:04 → LAB RH 11:37
PROVIDERS: Family Medicine
DX: E78.5 Hyperlipidemia, unspecified (principal); E11.9 Type 2 diabetes mellitus without complications
CPT/HCPCS: 80048; 83036; 85027

== ENCOUNTER → 2021-07-18 | Outpatient (CLI) | payer OTHER ==
[2021-07-18 10:23] LABS: CHOL/HDL RATIO 8.8; Cholesterol 237 mg/dL (50-200); HDL Cholesterol 27 mg/dL (>39); LDL/HDL RATIO 6.3; Low Density Lipoprotein Chol 169 mg/dL (0-110); Triglycerides 204 mg/dL (30-160); Very Low Density Lipoprot Chol 40 mg/dL (6-32)
== END | disposition home or self-care (01) ==
LOC: LAB RH 08:17 → EDSTATUS 11:22
PROVIDERS: Internal Medicine
DX: E11.9 Type 2 diabetes mellitus without complications (principal); I50.42 Chronic combined systolic (congestive) and diastolic (congestive) heart failure
CPT/HCPCS: 80061

== ENCOUNTER 2021-09-01 17:48 | Emergency (ER) | payer OTHER ==
[~2021-09-01] VITALS: Ht 170.2 cm; Wt 147.4 kg
== END 2021-09-02 00:53 | disposition home or self-care (01) ==
LOC: ER 17:48
DX: I82.401 Acute embolism and thrombosis of unspecified deep veins of right lower extremity (principal); K21.9 Gastro-esophageal reflux disease without esophagitis; E78.5 Hyperlipidemia, unspecified; I50.32 Chronic diastolic (congestive) heart failure; I11.0 Hypertensive heart disease with heart failure; E03.9 Hypothyroidism, unspecified; Z79.899 Other long term (current) drug therapy
CPT/HCPCS: 99283; A9270

== ENCOUNTER → 2021-09-06 | Outpatient (CLI) | payer OTHER ==
[2021-09-06 09:55] LABS: Anion Gap 5 mmol/L (6-16); Blood Urea Nitrogen 24 mg/dL (8-24); Bun/Creatinine Ratio 35.8 (12.0-20.0); CO2, Blood 29 mmol/L (21-32); Calcium, Blood 10.2 mg/dL (8.5-10.1); Chloride, Blood 101 mmol/L (98-108); Creatinine, Blood 0.67 mg/dL (0.40-1.00); Glomerular Filtration Rate >60 (60-); Glucose, Blood 218 mg/dL (70-99); Potassium, Blood 4.3 mmol/L (3.5-5.5); Sodium, Blood 135 mmol/L (136-145)
== END ==
LOC: LAB RH 07:47 → EDSTATUS 11:37
PROVIDERS: Family Medicine
DX: E11.9 Type 2 diabetes mellitus without complications (principal); E78.5 Hyperlipidemia, unspecified; E03.9 Hypothyroidism, unspecified; I11.0 Hypertensive heart disease with heart failure; I50.42 Chronic combined systolic (congestive) and diastolic (congestive) heart failure; D64.9 Anemia, unspecified
CPT/HCPCS: 80048